=== PATIENT | female | born 1950 | race Caucasian/White ===

== ENCOUNTER → 2017-01-20 | Outpatient (CLI) | payer OTHER ==
[2017-01-20 11:46] LABS: Basophils # (A) 0.1 k/uL (0-0.2); Basophils % (A) 1 %; CH 32.4; CHCM 32.5; Eosinophils # (A) 0.2 k/uL (0-0.7); Eosinophils % (A) 2 %; HCT 45.6 % (34.0-46.0); HDW 2.47; HGB 14.6 gm/dL (11.4-16.0); Luc # (Auto) 0.15; Luc % (Auto) 2; Lymphocytes # (A) 1.8 k/uL (1.0-4.8); Lymphocytes % (A) 22 %; MCHC 31.9 g/dL (31.0-37.0); MCV 100.4 fL (80.0-100.0); Monocytes # (A) 0.4 k/uL (0-1.0); Monocytes % (A) 5 %; Neutrophils # (A) 5.3 k/uL (1.3-7.7); Neutrophils % (A) 67 %; RBC 4.55 m/uL (3.80-5.40); RDW 13.5 % (11.5-15.5); WBC 7.9 k/uL (3.8-10.6); WBC (Perox) 7.88
[2017-01-20 12:06] LABS: ALT 20 U/L (9-52); AST 17 U/L (14-36); Alkaline Phosphatase 90 U/L (38-126); Anion Gap 9 mmol/L; Blood Urea Nitrogen 10 mg/dL (7-17); Calcium 9.6 mg/dL (8.4-10.2); Carbon Dioxide 25 mmol/L (22-30); Chloride 108 mmol/L (98-107); Cholesterol 201 mg/dL (<200); Glucose 103 mg/dL (74-99); HDL Cholesterol 51 mg/dL (40-60); Non-African American GFR(MDRD) 55 (>60 ml/min/1.73 sqM); Potassium 4.4 mmol/L (3.5-5.1); Sodium 142 mmol/L (137-145); Total Bilirubin 0.7 mg/dL (0.2-1.3); Total Protein 7.4 g/dL (6.3-8.2); Triglycerides 176 mg/dL (<150)
[2017-01-20 12:52] LABS: Hepatitis C Virus IgG Index 0.03
[2017-01-20 12:57] LABS: Hepatitis C Virus IgG Ab Negative (Negative)
[2017-01-20 13:41] LABS: Hemoglobin A1C 5.5 % (4.2-6.1)
== END | disposition home or self-care (01) ==
LOC: LABWHC1 11:01
PROVIDERS: ATTEND Family Medicine
DX: E11.9 Type 2 diabetes mellitus without complications (principal); Z13.9 Encounter for screening, unspecified
CPT/HCPCS: 36415; 80053; 80061; 82043; 83036; 84443; 85025; 86803

== ENCOUNTER → 2017-02-05 | Outpatient (CLI) | payer OTHER ==
--- NOTE | 2017-02-07 10:19 | MM ---
Reason for exam: screening (asymptomatic). Last mammogram was performed 2 years and 1 month ago. History: Patient is postmenopausal and has history of endometrial cancer at age 31. Family history of breast cancer in grandmother at age 50, breast cancer in mother at age 50, and breast cancer in grandmother at age 60. Benign excisional biopsy of the right breast, 1988. Took hormonal contraceptives for 5 years beginning at age 21. Physical Findings: A clinical breast exam by your physician is recommended on an annual basis and results should be correlated with mammographic findings. MG Screening Mammo w CAD Bilateral CC and MLO view(s) were taken. Prior study comparison: December 28, 2014, bilateral MG screening mammo w CAD. February 11, 2013, bilateral digital screening mammo w/CAD. January 16, 2012, bilateral digital screening mammo w/CAD. The breast tissue is almost entirely fat. No significant changes when compared with prior studies. ASSESSMENT: Negative, BI-RAD 1 RECOMMENDATION: Routine screening mammogram of both breasts in 1 year.
== END | disposition home or self-care (01) ==
LOC: RADMAMWWP 14:27
PROVIDERS: ATTEND Family Medicine
DX: Z12.31 Encounter for screening mammogram for malignant neoplasm of breast (principal)

== ENCOUNTER 2017-05-15 06:20 | Inpatient (IN) | payer OTHER ==
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
[2017-05-15] MEDS ORDERED: ACETAMINOPHEN TAB 325 MG TAB PO PRN (10:40)
[2017-05-15] MEDS ORDERED: MAG HYDROX/AL HYDROX/SIMETH 30 ML CUP PO PRN (10:40)
[2017-05-15] MEDS ORDERED: MAGNESIUM HYDROXIDE 2,400 MG/10 ML CUP PO PRN (10:40)
[2017-05-15] MEDS ORDERED: SERTRALINE 100 MG TAB PO SCH (21:00)
[2017-05-15] MEDS ORDERED: NON-FORMULARY DRUG (Biotin [Biotin] 5 MG) PO SCH (21:00)
[2017-05-15] MEDS: ATORVASTATIN 20 MG TAB PO SCH (21:30)
[2017-05-15] MEDS: VALSARTAN 160 MG TAB PO SCH (21:30)
[2017-05-15] MEDS: ASPIRIN 81 MG CHEW PO SCH (21:30)
[2017-05-16 09:30] LABS: Basophils # (A) 0.1 k/uL (0-0.2); Basophils % (A) 1 %; CH 32.8; CHCM 33.2; Eosinophils # (A) 0.1 k/uL (0-0.7); Eosinophils % (A) 2 %; HCT 44.7 % (34.0-46.0); HDW 2.45; HGB 14.8 gm/dL (11.4-16.0); Luc # (Auto) 0.23; Luc % (Auto) 3; Lymphocytes # (A) 1.7 k/uL (1.0-4.8); Lymphocytes % (A) 21 %; MCH 32.8 pg (25.0-35.0); MCV 99.5 fL (80.0-100.0); Mean Platelet Volume 8.6; Monocytes # (A) 0.4 k/uL (0-1.0); Monocytes % (A) 5 %; Neutrophils # (A) 5.8 k/uL (1.3-7.7); Neutrophils % (A) 69 %; RDW 14.3 % (11.5-15.5); WBC 8.4 k/uL (3.8-10.6); WBC (Perox) 8.72
[2017-05-16 09:58] LABS: ALT 33 U/L (9-52); AST 28 U/L (14-36); Alkaline Phosphatase 91 U/L (38-126); Anion Gap 10 mmol/L; Blood Urea Nitrogen 15 mg/dL (7-17); Calcium 9.3 mg/dL (8.4-10.2); Carbon Dioxide 24 mmol/L (22-30); Chloride 109 mmol/L (98-107); Glucose 93 mg/dL (74-99); Non-African American GFR(MDRD) >60 (>60 ml/min/1.73 sqM); Potassium 3.7 mmol/L (3.5-5.1); Sodium 143 mmol/L (137-145); Total Bilirubin 0.6 mg/dL (0.2-1.3); Total Protein 7.1 g/dL (6.3-8.2)
--- NOTE | 2017-05-16 14:26 | CONS ---
DATE OF CONSULTATION: 05/15/17 REASON FOR CONSULTATION: Increasing depression. CONSULTATION: This is a pleasant 66 -year-old patient of Dr. Carlson whose chronic stable medical conditions include diabetes, hyperlipidemia, hypertension. The patient rather become very depressed. Appetite has gone done. Just feeling run down, tired. Not interested in things for which she presented to the ER. She also states because she is being accused of spreading bed bugs into her neighbors house. Hence, she is very depressed. Appetite is not good. REVIEW OF SYSTEMS: CONSTITUTIONAL: None. HEENT: None. RESPIRATORY: None. Cardiovascular: None. Gastrointestinal: None. Genitourinary: None. Musculoskeletal: None. Dermatology: None. Hematology: None. Lymphatics: None. Psychiatry: As above. Neurological: None. Past history of diabetes mellitus type 2, hyperlipidemia, hypertension, cervical cancer. Past surgical history: Adenoidectomy, appendectomy, cholecystectomy, tonsillectomy. Social history: The patient smokes about a pack a day. Lives by herself. Denies alcohol. FAMILY HISTORY: Reviewed, noncontributory to presentation. Home medications: 1. Diovan 320 mg q.h.s. 2. Biotin 5 mg q.h.s. 3. Aspirin 81 mg po q.h.s. 4. Zocor 40 mg q.h.s. 5. Zoloft 100 mg q.h.s. ALLERGIES: None. On examination, temperature 97.9, pulse 66, respiratory rate 16, blood pressure 130/72. Pulse ox 95% on room air. General appearance: Well built, BMI 35.6, sitting up, depressed appearing. EYES: Pupils equal. Conjunctivae normal. HEENT: Scanty hair. Oral cavity normal. External appearance of nose and ears normal. Neck: JVD not raised. Mass not palpable. Respiratory effort: Lungs decreased breath sounds. Cardiovascular: First and second sounds normal. No edema. Abdomen soft, nontender. Liver and spleen not palpable. Lymphatics: No lymph nodes palpable in the neck or axilla. Psychiatry: The patient is alert and oriented times three. Mood and affect low. Neurological: Pupils equal, cranial nerves grossly intact. Power and sensation grossly intact. INVESTIGATIONS: Urine drug screen negative. ASSESSMENT: 1. Major depression. 2. Chronic nicotine dependence, the patient is a smoker. 3. Essential hypertension. 4. Hyperlipidemia. PLAN: Home medications will be resumed. The patient given a nicotine patch. Should follow-up with her family doctor upon discharge. Thank you Dr. Lay. TOM
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
[2017-05-16] MEDS: ATORVASTATIN 20 MG TAB PO SCH (21:44)
[2017-05-16] MEDS: SERTRALINE 50 MG TAB PO SCH (21:44)
[2017-05-16] MEDS: ASPIRIN 81 MG CHEW PO SCH (21:44)
[2017-05-16] MEDS: VALSARTAN 160 MG TAB PO SCH (21:44)
[2017-05-17 06:22] LABS: Glucose,Whole Blood 98 mg/dL (75-99)
[2017-05-17] MEDS: VENLAFAXINE HCL 37.5 MG TAB PO SCH (09:39)
--- NOTE | 2017-05-17 15:52 | P.PN ---
Progress Note - Text Interval History: Patient is a 66-year-old female who was seen today and she reports that she slept well last evening. Patient states that she knows she needs to contact her landlord to find out whether she can return there to her apartment or not, patient states she is still concerned about this and is reluctant to make the call. Patient states that she is eating okay and did not report any suicidal thoughts. She states she did not go to groups today because she was tired and was napping on and off during the day. Patient had no reports of side effects from the medication. Mental Status: Appearance/Attitude: Patient is dressed in a hospital gown, makes good eye contact and is cooperative. Behavior: Patient does not display any psychomotor agitation or retardation. Speech/Language: Patient's speech is spontaneous and of normal volume and rhythm and she is coherent. Thought Process: Patient is goal-directed, there is no evidence of circumstantial tangential thought and no loose associations or flight of ideas. Thought Content: Patient denies any auditory or visual hallucinations no delusions or paranoid ideation were elicited. Patient states she still is worried about her apartment and is reluctant to make a phone call to the landlord for fear that she will begin yelling at her. Patient states that she is eating and sleeping well. Patient reports that she feels calmer here but still is concerned about the apartment situation. Suicidal/Homicidal Ideation: Patient denies any current suicidal or homicidal ideation Sensorium/Cognition: Patient is alert and oriented to person, place, and time and her memory is grossly intact. Mood/Affect: Patient's mood remains slightly depressed and her affect is appropriate. Insight/Judgement: Patient's insight and judgment are fair. Assessment: Patient reports that she continues to ruminate about her apartment and is reluctant to call the landlord to find out what is going on there because she fears that the landlord will yell at her. Patient reports that she slept well last evening and has been sleeping on and off during the day. Patient reports no side effects from the medication. Patient reports no current suicidal ideation. Patient remains depressed and states that she is feeling less anxious here on the unit. Plan: Patient will continue on Effexor 37.5 mg extended release and she will continue receiving a lower dose of Zoloft tomorrow and then it will be discontinued. Patient continues to require hospitalization to stabilize her mood. Patient was encouraged to contact her landlord to find out whether or not she can return to live there and what has gone on regarding the fumigation and treatment for bedbugs.
[2017-05-17] MEDS: ASPIRIN 81 MG CHEW PO SCH (21:41)
[2017-05-17] MEDS: SERTRALINE 50 MG TAB PO SCH (21:41)
[2017-05-17] MEDS: VALSARTAN 160 MG TAB PO SCH (21:41)
[2017-05-17] MEDS: ATORVASTATIN 20 MG TAB PO SCH (21:41)
[2017-05-18 06:28] LABS: Glucose,Whole Blood 98 mg/dL (75-99)
[2017-05-18] MEDS: VENLAFAXINE HCL 37.5 MG TAB PO SCH (09:37)
--- NOTE | 2017-05-18 10:26 | P.PN ---
Progress Note - Text Interval history: The patient is found in her room she follows me to an interview room. The patient was admitted for acute symptoms of depression. She reports a depressed mood with continued feelings of hopelessness. She had been treated for quite some time with Zoloft. Her medication was changed to Effexor XR 37.5 mg daily. She states that she had difficulty sleeping last night due to her roommate snoring and subsequently feels tired. Her questions regarding the Effexor XR work addressed. She describes her presenting circumstances. Mental status exam: The patient is an overweight female appearing her stated age. Eye contact is appropriate speech is fluent and spontaneous nonpressured. She endorses a depressed mood with hopelessness thinking. She admits that she was not doing well in caring for herself. She endorses no homicidal ideation. She does not appear hypomanic or manic. She endorses no auditory or visual hallucinations or specific delusions. She demonstrates no verbal or physical aggressiveness. Affect is dysphoric. She is oriented to person place and date. Plan: The patient will continue on the Effexor XR our plan will be to titrate it further. She is encouraged to more fully participate in the milieu. We will continue to monitor her for safety.
[2017-05-18 12:25] LABS: Glucose,Whole Blood 95 mg/dL (75-99)
[2017-05-18] MEDS: ASPIRIN 81 MG CHEW PO SCH (21:27)
[2017-05-18] MEDS: ATORVASTATIN 20 MG TAB PO SCH (21:27)
[2017-05-18] MEDS: VALSARTAN 160 MG TAB PO SCH (21:27)
[2017-05-19] MEDS: VENLAFAXINE HCL 37.5 MG TAB PO SCH (09:06)
[2017-05-19 13:46] LABS: Appearance,Urine Clear (Clear); Bilirubin,Urine Negative (Negative); Glucose,Urine (UA) Negative (Negative); Ketones,Urine Negative (Negative); Leukocyte Esterase,Urine Negative (Negative); Nitrite,Urine Negative (Negative); PH, Urine 5.5 (5.0-8.0); Protein,Urine Negative (Negative); Specific Gravity,Urine 1.012 (1.001-1.035); UA Billing (MACRO vs. MICRO) CHEM; Urobilinogen,Urine <2.0 mg/dL (<2.0)
[2017-05-19] MEDS: ASPIRIN 81 MG CHEW PO SCH (20:47)
[2017-05-19] MEDS: VALSARTAN 160 MG TAB PO SCH (20:47)
[2017-05-19] MEDS: ATORVASTATIN 20 MG TAB PO SCH (20:47)
[2017-05-19] MEDS ORDERED: VENLAFAXINE HCL 37.5 MG TAB PO SCH (21:00)
--- NOTE | 2017-05-20 09:15 | PN ---
PROGRESS NOTE DATE OF SERVICE: 05/19/2017. CHIEF COMPLAINT: The patient was admitted due to conflicts in the apartment she was living in, which caused her great distress. She had nightmares with suicidal thoughts. She has had long- term problems with depression. She has been having crying spells, loss of appetite with weight loss, poor sleep, and poor function. INTERVAL HISTORY: The patient has been doing fairly well. She had a quiet evening last night. She continues to have some depression. She slept well last night. Today she has been up and about. She attends groups sporadically. She feels that she may have some benefit from her medications though still feels that she is struggling with her mood. She has not had problems with the change in her antidepressant. She has not had change in her general health. She tolerates her psychotropic medication. MENTAL STATUS EXAM: The patient gave fair eye contact. Psychomotor activity was slowed. Speech was monotone. She answered questions with brief responses. Her thoughts were clear. She was too spontaneous, though she was somewhat interactive. Her affect was blunted. Her mood was reserved. She did appear to be significantly distressed. ASSESSMENT: Continue the current diagnosis and treatment plan. PLAN: The patient is tolerating the start of Effexor, I will increase her dose to 75 mg at bedtime. She does say that the initial doses of Effexor that she took in the morning time seemed to make her quite sleepy after she took the medication. We discussed treatment issues related to antidepressant including short and long-term issues. We will continue to focus on stabilization and discharge planning. MMJUNIOR / BRIDGETTE: [id number] /
--- NOTE | 2017-05-20 19:00 | PN ---
PROGRESS NOTE DATE OF SERVICE: 05/20/2017 CHIEF COMPLAINT: The patient was admitted due to conflicts in the apartment she was living in which caused her great distress. She had nightmares with suicide thoughts. She has had long-term problems with depression. She has been having crying spells. Loss of appetite with weight loss. Poor sleep and poor function. INTERVAL HISTORY: Patient has been doing fair. She had a quiet evening last night. She slept fairly well. Today she has been up. She comes out in the day area. She will interact a little with others. She talks about how there are some people in the unit that causes her stress so she keeps her distance. She attends some groups though not others. She still is somewhat down in her mood. She has not had problems with increase in Effexor. She has not had change in her general health. She tolerates psychotropic medications. MENTAL STATUS: Patient gave fair eye contact at best. Psychomotor activity was slowed. Speech was monotone. She answered questions with brief responses. She did make a few joking comments. Her affect was blunted. Her mood reserved. She seems somewhat distressed. ASSESSMENT: I will continue the current diagnosis and the treatment plan. Continue psychotropic medications the same. Her Effexor dose has been increased to a total of 75 mg at bedtime. We will continue to focus on stabilization and discharge planning. MMODL / IJN: [id number] /
[2017-05-20] MEDS: ASPIRIN 81 MG CHEW PO SCH (21:01)
[2017-05-20] MEDS: ATORVASTATIN 20 MG TAB PO SCH (21:01)
[2017-05-20] MEDS: VENLAFAXINE HCL ER 75 MG CAP PO SCH (21:01)
[2017-05-20] MEDS: VALSARTAN 160 MG TAB PO SCH (21:01)
--- NOTE | 2017-05-21 11:01 | P.PN ---
Progress Note - Text Interval history: The patient is found in her room she follows me to an interview room. She reports feeling tired. Staff report that she does attend meals and she did attend groups yesterday but so far not today. She has not yet received a return call from her daughter leading her know if she is able to return to the same apartment. The patient has been compliant with the Effexor the dosage has been titrated to 75 mg and it is being given at bedtime. She endorses having some intermittent hopelessness thinking. Mental status exam: The patient is an overweight female. She is dressed in her own clothing. Her hair is thinning. Eye contact is intermittent. She is cooperative pleasant but still endorses a depressed mood with some hopeless thinking. She is endorsing no acute suicidal ideation or homicidal ideation. No report or evidence of psychosis hypomania or lalita. Insight and judgment are slowly improving. She is oriented to person place and date. She demonstrates no verbal or physical aggressiveness. Affect is constricted. Plan: The patient will continue on her current medication she is encouraged to participate more fully in the milieu. Vital signs reviewed. We will continue to monitor her for safety.
[2017-05-21] MEDS: ASPIRIN 81 MG CHEW PO SCH (20:26)
[2017-05-21] MEDS: VENLAFAXINE HCL ER 75 MG CAP PO SCH (20:26)
[2017-05-21] MEDS: ATORVASTATIN 20 MG TAB PO SCH (20:27)
[2017-05-21] MEDS: VALSARTAN 160 MG TAB PO SCH (21:18)
--- NOTE | 2017-05-22 11:51 | P.PN ---
Progress Note - Text Interval history: The patient is found in her room she follows me to an interview room. She reports that her mood is slowly improving. She has selectively attended some groups. She has been compliant with medication and has no questions regarding the Effexor XR. Social work was able to make contact with the patient's landlord. The apartment has been treated for bed bugs. The patient is able to return. They asked that she remove several items from her apartment as they feel she is hoarding. On that topic the patient does not feel that she is hoarding she would admit that she does have an excessive collection of books and VHS tapes. Mental status exam: The patient is an overweight female she is dressed in her own clothing and a hospital gown. Eye contact is appropriate she is pleasant cooperative. She demonstrates a greater range of affect. She reports her hopeless thinking is resolving she feels safe in the hospital no homicidal ideation. She is endorsing no auditory or visual hallucinations. She demonstrates no tangential thinking loose associations or flight of ideas. Insight and judgment improving. She is oriented to person place and date. She demonstrates no verbal or physical aggressiveness. Plan: The patient will continue on her current medication we anticipate discharging her tomorrow. Social work will reach out to family to see if her daughter is available for a support meeting. We will continue to evaluate the patient for safety
[2017-05-22] MEDS: VALSARTAN 160 MG TAB PO SCH (20:45)
[2017-05-22] MEDS: ASPIRIN 81 MG CHEW PO SCH (20:45)
[2017-05-22] MEDS: VENLAFAXINE HCL ER 75 MG CAP PO SCH (20:45)
[2017-05-22] MEDS: ATORVASTATIN 20 MG TAB PO SCH (20:45)
[2017-05-23 07:26] VITALS: BP 116/81; PULSE 58; RESP 18; TEMP 98.1
--- NOTE | 2017-05-23 09:20 | P.DS ---
Providers Date of admission: 05/15/17 10:26 Expected date of discharge: 05/23/17 Attending physician: Kevin Lay Consults: 05/15/17 10:40 Consult Physician Routine Consulting Provider: Goldy Brewer Consult Reason/Comments: follow up H & P Do you want consulting provider notified?: Yes Primary care physician: Antoine Carlson - Discharge Diagnosis(es) (1) Major depressive disorder, recurrent severe without psychotic features Current Visit: Yes Status: Acute Priority: High Hospital Course: Brief summary of admission note: This patient is a 66-year-old female who was admitted to the mental health unit through the emergency room. She reported that she was "falling apart". She presented after it was discovered there were bedbugs in her apartment and her neighbor's apartment. She felt overwhelmed and was experiencing severe symptoms of depression with lack of energy not eating well having frequent crying spells and ruminating. She reported losing approximately 11 pounds the last month. For full details please refer to the psychiatric evaluation note. Summary of hospital course: The patient was admitted to the mental health unit voluntarily. She was seen initially by and was started on Effexor XR. The medication was titrated to 75 mg daily. The patient selectively attended groups. She was seen by internal medicine for routine history and physical exam. The patient reported progressive improvement of symptoms while here. Social work was able to make contact with the patient's landlord to discuss the housing situation. The patient demonstrated no agitated behavior. She initially felt the Effexor caused some sedation but no longer feels that the medication is causing any side effects. She reports having no suicidal ideation she demonstrates future oriented thinking in that she is looking forward to working with an outpatient counselor again. Mental status exam: The patient is an obese female appearing her stated age. She has thinning hair. She is dressed in her own clothing. Eye contact is appropriate speech is fluent spontaneous nonpressured. She reports her mood is improved she is reporting no suicidal or homicidal ideation intent or plan. She endorses no auditory or visual hallucinations or specific delusions. She demonstrates no tangential thinking loose associations or flight of ideas she does not appear hypomanic or manic. There is no overt evidence of psychosis. She demonstrates no verbal or physical aggressiveness. She remains oriented to person place and date. Affect is appropriately expresses she is able to demonstrate appropriate smiling and uses humor during the session. She remains calmly seated in the chair during the course of the interview. Impressions 1. Major depressive disorder recurrent severe without psychosis 2. History of cervical cancer, diabetes, hyperlipidemia, hypertension 3. Recent bedbug infestation at her apartment causing psychosocial dysfunction Plan: The patient will be discharged mental health unit today to return to her own home. Her landlord has been contacted she is able to return back to her apartment. She will continue on Effexor XR 75 mg daily. Social work will arrange for outpatient mental health follow-up. There is no imminent safety risk she is appropriate for transition outpatient care. She will continue to follow up with her primary care physician Dr. White as needed. She is instructed return to the hospital with any acute safety concerns. Patient Condition at Discharge: Stable Plan - Discharge Summary New Discharge Prescriptions: New Venlafaxine HCl ER [Effexor XR] 75 mg PO HS #30 cap Continue Valsartan [Diovan] 320 mg PO HS Aspirin 81 mg PO HS Simvastatin [Zocor] 40 mg PO HS Biotin 5 mg PO HS Discontinued Sertraline [Zoloft] 100 mg PO HS Discharge Medication List Aspirin 81 mg PO HS 05/15/17 [History] Biotin 5 mg PO HS 05/15/17 [History] Simvastatin [Zocor] 40 mg PO HS 05/15/17 [History] Valsartan [Diovan] 320 mg PO HS 05/15/17 [History] Venlafaxine HCl ER [Effexor XR] 75 mg PO HS #30 cap 05/23/17 [Rx] Follow up Appointment(s)/Referral(s): [facility] [Outside] - 05/24/17 4:30 pm ([place]) Wili Carlson MD [Primary Care Provider] - 1-2 days Patient Instructions/Handouts: How to Stop Smoking (DC), Depression (DC), Generalized Anxiety Disorder (ED), Suicide Prevention for Adults (DC) Activity/Diet/Wound Care/Special Instructions: Regular diet and activity as tolerated. No alcohol or street drugs. Remove all firearms from the home. Follow up with your primary care in 1-2 days. Follow up with outpatient provider as set up at time of discharge. If medication refills are needed, contact your PCP or Psychiatrist. Call crisis line at or [phone] if having thoughts of hurting yourself or others.
== END 2017-05-23 10:15 | disposition home or self-care (01) | DRG 885 ==
LOC: EC 06:20 → 3MHU 10:26
PROVIDERS: ADMIT Psychiatry & Neurology Psychiatry; ATTEND Psychiatry & Neurology Psychiatry
DX: F33.2 Major depressive disorder, recurrent severe without psychotic features (principal); E11.9 Type 2 diabetes mellitus without complications; I10 Essential (primary) hypertension; E66.9 Obesity, unspecified; E78.5 Hyperlipidemia, unspecified; F17.210 Nicotine dependence, cigarettes, uncomplicated; Z79.82 Long term (current) use of aspirin; Z79.899 Other long term (current) drug therapy; Z85.41 Personal history of malignant neoplasm of cervix uteri; Z91.5 Personal history of self-harm
CPT/HCPCS: 80053; 80306; 81003; 82075; 84443; 85025; 99284

== ENCOUNTER → 2018-02-07 | Outpatient (CLI) | payer OTHER, MEDICARE ==
[2018-02-07 10:10] LABS: Basophils # (A) 0.1 k/uL (0-0.2); Basophils % (A) 1 %; Eosinophils # (A) 0.2 k/uL (0-0.7); Eosinophils % (A) 2 %; HCT 40.7 % (34.0-46.0); HGB 13.6 gm/dL (11.4-16.0); Lymphocytes # (A) 3.3 k/uL (1.0-4.8); Lymphocytes % (A) 32 %; MCH 32.6 pg (25.0-35.0); MCHC 33.4 g/dL (31.0-37.0); MCV 97.8 fL (80.0-100.0); Mean Platelet Volume 7.6; Monocytes # (A) 0.5 k/uL (0-1.0); Monocytes % (A) 5 %; Neutrophils % (A) 58 %; Platelet Count 242 k/uL (150-450); RBC 4.16 m/uL (3.80-5.40); RDW 12.9 % (11.5-15.5); WBC 10.3 k/uL (3.8-10.6)
[2018-02-07 10:29] LABS: Albumin 4.2 g/dL (3.5-5.0); Calcium 9.8 mg/dL (8.4-10.2); Potassium 3.7 mmol/L (3.5-5.1); Total Bilirubin 0.4 mg/dL (0.2-1.3)
[2018-02-07 19:30] LABS: Hemoglobin A1C 5.9 % (4.0-6.0)
== END | disposition home or self-care (01) ==
LOC: LABWHC1 09:36
PROVIDERS: ATTEND Family Medicine
DX: E11.9 Type 2 diabetes mellitus without complications (principal)
CPT/HCPCS: 36415; 80053; 80061; 82043; 82570; 83036; 84443; 85025

== ENCOUNTER 2020-01-29 17:22 | Inpatient (IN) | payer MEDICARE, OTHER ==
[2020-01-29] MEDS ORDERED: SODIUM CHLORIDE 0.9% 1,000 ML IV STA ×4 (17:31→19:20)
[2020-01-29] MEDS ORDERED: SODIUM CHLORIDE 0.9% 500 ML 500 ML IV STA (17:31)
[2020-01-29 18:04] LABS: Basophils % (A) 0 %; Eosinophils # (A) 0.1 k/uL (0-0.7); Eosinophils % (A) 0 %; HCT 45.8 % (34.0-46.0); HGB 15.8 gm/dL (11.4-16.0); Lymphocytes # (A) 0.4 k/uL (1.0-4.8); Lymphocytes % (A) 3 %; MCH 34.6 pg (25.0-35.0); MCHC 34.5 g/dL (31.0-37.0); MCV 100.4 fL (80.0-100.0); Macrocytosis Slight; Mean Platelet Volume 10.2; Monocytes # (A) 0.7 k/uL (0-1.0); Monocytes % (A) 4 %; Neutrophils # (A) 14.9 k/uL (1.3-7.7); Neutrophils % (A) 92 %; Platelet Count 157 k/uL (150-450); RBC 4.56 m/uL (3.80-5.40); RDW 14.6 % (11.5-15.5); WBC 16.1 k/uL (3.8-10.6)
[2020-01-29 18:16] LABS: Albumin 3.7 g/dL (3.5-5.0); Calcium 9.1 mg/dL (8.4-10.2); Magnesium 2.7 mg/dL (1.6-2.3); Potassium 3.8 mmol/L (3.5-5.1); Total Bilirubin 1.6 mg/dL (0.2-1.3); Total Protein 6.9 g/dL (6.3-8.2)
--- NOTE | 2020-01-29 19:06 | ED ---
General Adult HPI - General Chief complaint: Fall Stated complaint: Hypertension Time Seen by Provider: 01/29/20 17:22 Source: patient, EMS, RN notes reviewed Mode of arrival: EMS Limitations: no limitations - History of Present Illness Initial comments: This is a 69-year-old female who is on floor by family member today is unknown how long she was actually there that the patient told paramedics she was here for 3 months. The patient's last contacted by family and the ninth of this month. Patient is not sure how she got the floor she denies any overt pain head neck or back pain she was slow to answer questions. She was found have multiple decubitus sores by paramedics. No other information available at this time though the patient does seem to respond to questioning upon arrival. She's not sure what year it is she has no she's in the hospital. She repeats that she is 79 years old. - Related Data Home Medications Medication Instructions Recorded Confirmed No Known Home Medications 01/29/20 01/29/20 Allergies Allergy/AdvReac Type Severity Reaction Status Date / Time No Known Allergies Allergy Verified 01/29/20 19:33 Review of Systems ROS Statement: Those systems with pertinent positive or pertinent negative responses have been documented in the HPI. ROS Other: All systems not noted in ROS Statement are negative. Limitations: ROS unobtainable due to patients medical condition Past Medical History Past Medical History: Cancer, Diabetes Mellitus, Hyperlipidemia, Hypertension Additional Past Medical History / Comment(s): cervical cancer. History of Any Multi-Drug Resistant Organisms: None Reported Past Surgical History: Adenoidectomy, Appendectomy, Cholecystectomy, Tonsillectomy Past Psychological History: Depression Smoking Status: Current every day smoker General Exam - General Exam Comments Initial Comments: This is a well-developed sec appearing female who is awake alert but confused patient is noted to have evidence of bedbugs with multiple bite grewal on the extremities. Limitations: no limitations General appearance: alert, in no apparent distress Head exam: Present: atraumatic, normocephalic, normal inspection Eye exam: Present: normal appearance, PERRL, EOMI. Absent: scleral icterus, conjunctival injection, periorbital swelling ENT exam: Present: mucous membranes dry Neck exam: Present: normal inspection. Absent: tenderness, meningismus, lymphadenopathy Respiratory exam: Present: normal lung sounds bilaterally. Absent: respiratory distress, wheezes, rales, rhonchi, stridor Cardiovascular Exam: Present: regular rate, normal rhythm, normal heart sounds. Absent: systolic murmur, diastolic murmur, rubs, gallop, clicks GI/Abdominal exam: Present: soft, normal bowel sounds. Absent: distended, tenderness, guarding, rebound, rigid Extremities exam: Present: full ROM, normal capillary refill. Absent: tenderness, pedal edema, joint swelling, calf tenderness Back exam: Present: normal inspection Neurological exam: Present: alert, oriented X3, CN II-XII intact Psychiatric exam: Present: normal affect, normal mood Skin exam: Present: warm, dry, normal color, other (Multiple areas of pressure sores seen on both knees the first metatarsal phalangeal joint on the left second toe on the right additionally evidence of pressure sores and skin breakd own on the chest wall and below both breasts. Exam was elevated female nurse present also a female family member present. And as above). Absent: rash Course Vital Signs 01/29/20 01/29/20 17:35 20:26 Temperature 97 F L 94.3 F L Pulse Rate 92 78 Respiratory 17 18 Rate Blood Pressure 116/76 130/68 O2 Sat by Pulse 99 100 Oximetry - Reevaluation(s) Reevaluation #1: 01/29/20 21:01 Reevaluation patient reveals that she is somewhat more responsive after IV fluids. I also did have a long discussion with the patient's granddaughter who was present. The patient's mental status at this time seems to be within baseline at this time. EKG Findings - EKG Results: EKG: interpreted by SHELDON, sinus rhythm (Sinus rhythm a sharp ear of all the rate was 92. We'll 108 QRS duration 90 QT since QTC 4:30/[address]-T wave changes) Medical Decision Making - Medical Decision Making Patient does have evidence of acute renal failure dehydration urinary tract infection she does have left acidosis likely mostly on the basis of dehydration. He does have a mildly elevated troponin again likely secondary to the renal condition. I did discuss case with Dr. Brewer. The patient will be admitted IV fluids IV antibiotics and continued reevaluation. - Lab Data Result diagrams: 01/29/20 17:50 01/29/20 17:50 Lab Results 01/29/20 01/29/20 01/29/20 Range/Units 17:50 17:50 17:50 WBC 16.1 H (3.8-10.6) k/uL RBC 4.56 (3.80-5.40) m/uL Hgb 15.8 (11.4-16.0) gm/dL Hct 45.8 (34.0-46.0) % MCV 100.4 H (80.0-100.0) fL MCH 34.6 (25.0-35.0) pg MCHC 34.5 (31.0-37.0) g/dL RDW 14.6 (11.5-15.5) % Plt Count 157 (150-450) k/uL Neutrophils % 92 % Lymphocytes % 3 % Monocytes % 4 % Eosinophils % 0 % Basophils % 0 % Neutrophils # 14.9 H (1.3-7.7) k/uL Lymphocytes # 0.4 L (1.0-4.8) k/uL Monocytes # 0.7 (0-1.0) k/uL Eosinophils # 0.1 (0-0.7) k/uL Basophils # 0.0 (0-0.2) k/uL Macrocytosis Slight Sodium 135 L (137-145) mmol/L Potassium 3.8 (3.5-5.1) mmol/L Chloride 97 L (98-107) mmol/L Carbon Dioxide 18 L (22-30) mmol/L Anion Gap 20 mmol/L BUN 105 H* (7-17) mg/dL Creatinine 3.26 H (0.52-1.04) mg/dL Est GFR (CKD-EPI)AfAm 16 (>60 ml/min/1.73 sqM) Est GFR (CKD-EPI)NonAf 14 (>60 ml/min/1.73 sqM) Glucose 236 H (74-99) mg/dL Plasma Lactic Acid Bruno (0.7-2.0) mmol/L Calcium 9.1 (8.4-10.2) mg/dL Magnesium 2.7 H (1.6-2.3) mg/dL Total Bilirubin 1.6 H (0.2-1.3) mg/dL AST 25 (14-36) U/L ALT 18 (4-34) U/L Alkaline Phosphatase 95 (38-126) U/L Ammonia <9 (<30) umol/L Creatine Kinase 93 (30-135) U/L Troponin I (0.000-0.034) ng/mL Total Protein 6.9 (6.3-8.2) g/dL Albumin 3.7 (3.5-5.0) g/dL Lipase 173 (23-300) U/L Urine Color Urine Appearance (Clear) Urine pH (5.0-8.0) Ur Specific [place] (1.001-1.035) Urine Protein (Negative) Urine Glucose (UA) (Negative) Urine Ketones (Negative) Urine Blood (Negative) Urine Nitrite (Negative) Urine Bilirubin (Negative) Urine Urobilinogen (<2.0) mg/dL Ur Leukocyte Esterase (Negative) Urine RBC (0-5) /hpf Urine WBC (0-5) /hpf Ur Squamous Epith Cells (0-4) /hpf Urine Bacteria (None) /hpf Hyaline Casts (0-2) /lpf Urine Mucus (None) /hpf 01/29/20 01/29/20 01/29/20 Range/Units 17:50 17:50 19:53 WBC (3.8-10.6) k/uL RBC (3.80-5.40) m/uL Hgb (11.4-16.0) gm/dL Hct (34.0-46.0) % MCV (80.0-100.0) fL MCH (25.0-35.0) pg MCHC (31.0-37.0) g/dL RDW (11.5-15.5) % Plt Count (150-450) k/uL Neutrophils % % Lymphocytes % % Monocytes % % Eosinophils % % Basophils % % Neutrophils # (1.3-7.7) k/uL Lymphocytes # (1.0-4.8) k/uL Monocytes # (0-1.0) k/uL Eosinophils # (0-0.7) k/uL Basophils # (0-0.2) k/uL Macrocytosis Sodium (137-145) mmol/L Potassium (3.5-5.1) mmol/L Chloride (98-107) mmol/L Carbon Dioxide (22-30) mmol/L Anion Gap mmol/L BUN (7-17) mg/dL Creatinine (0.52-1.04) mg/dL Est GFR (CKD-EPI)AfAm (>60 ml/min/1.73 sqM) Est GFR (CKD-EPI)NonAf (>60 ml/min/1.73 sqM) Glucose (74-99) mg/dL Plasma Lactic Acid Bruno 3.5 H* (0.7-2.0) mmol/L Calcium (8.4-10.2) mg/dL Magnesium (1.6-2.3) mg/dL Total Bilirubin (0.2-1.3) mg/dL AST (14-36) U/L ALT (4-34) U/L Alkaline Phosphatase (38-126) U/L Ammonia (<30) umol/L Creatine Kinase (30-135) U/L Troponin I 0.048 H* (0.000-0.034) ng/mL Total Protein (6.3-8.2) g/dL Albumin (3.5-5.0) g/dL Lipase (23-300) U/L Urine Color Dark Brown Urine Appearance Turbid H (Clear) Urine pH 5.0 (5.0-8.0) Ur Specific [place] 1.018 (1.001-1.035) Urine Protein 1+ H (Negative) Urine Glucose (UA) Negative (Negative) Urine Ketones Negative (Negative) Urine Blood Negative (Negative) Urine Nitrite Negative (Negative) Urine Bilirubin 1+ H (Negative) Urine Urobilinogen 4.0 (<2.0) mg/dL Ur Leukocyte Esterase Negative (Negative) Urine RBC 7 H (0-5) /hpf Urine WBC 5 (0-5) /hpf Ur Squamous Epith Cells 20 H (0-4) /hpf Urine Bacteria Many H (None) /hpf Hyaline Casts 266 H (0-2) /lpf Urine Mucus Moderate H (None) /hpf - Radiology Data Radiology results: report reviewed (I did review the imaging and report no acute findings.), image reviewed Critical Care Time Critical Care Time: Yes Critical Care Time: 44 minutes of critical care time which includes initial presentation with history physical labs x-rays multiple reevaluation the patient. Review of old charting discussed with patient family discuss with the main physician admission orders and documentation of the above Disposition Clinical Impression: Fall, Acute renal failure (ARF), Dehydration, Urinary tract infection, Lactic acidosis, Elevated troponin Disposition: ADMITTED IP TO THIS HOSP Condition: Fair Referrals: Wili Carlson MD [Primary Care Provider] - 1-2 days
--- NOTE | 2020-01-29 19:31 | CT ---
EXAMINATION TYPE: CT brain venkat wo con DATE OF EXAM: 01/29/2020 COMPARISON: 11/05/2012 HISTORY: Fall injury CT DLP: 1338.2 mGycm, Automated exposure control for dose reduction was used. CONTRAST: Patient injected with 0 mL of Isovue 300. CT of the brain is performed utilizing 3 mm thick sections through the posterior fossa and 3 mm thick sections through the remaining calvarium. Study is performed within 24 hours of arrival to the hospital. No abnormal hyperdensity is present to suggest an acute intracranial hemorrhage. No mass lesion is evident. There are scattered periventricular white matter hypodensities, likely on the basis of chronic white matter ischemic change. This is somewhat progressive from 2012. No acute infarcts are evident. Ventricles and sulci are appropriate for the patient age. Paranasal sinuses and mastoid air cells within the [id number] are clear. IMPRESSIONS: 1. Periventricular white matter ischemic changes. 2. No acute intracranial process. CT cervical spine. COMPARISON: None CT of the cervical spine is performed in the axial plane at 2 mm thick sections. Reconstructed image s in the coronal, and sagittal plane are reviewed on the computer. No acute fractures are evident. Vertebral body alignment is normal. Disc heights are preserved. Vertebral body heights are preserved. No spinal canal stenosis is evident. No neural foraminal stenosis is evident. IMPRESSIONS: 1. No acute osseous abnormality cervical spine.
--- NOTE | 2020-01-29 19:33 | XR ---
EXAMINATION TYPE: XR pelvis AP view DATE OF EXAM: 01/29/2020 COMPARISON: None HISTORY: Fall, pain TECHNIQUE: AP pelvis FINDINGS: Some mild degenerative changes are at sacroiliac joints. Symphysis pubis appears normal. Femoral heads articulate with the acetabulum. Mild joint space narrowing is present on the right. No acute fractures or dislocations are evident. Normal bowel gas is present. IMPRESSION: 1. No acute osseous abnormality. 2. Mild degenerative joint changes
--- NOTE | 2020-01-29 19:34 | XR ---
EXAMINATION TYPE: XR chest 1V portable DATE OF EXAM: 01/29/2020 COMPARISON: 11/05/2012 INDICATION: Fall TECHNIQUE: Single frontal view of the chest is obtained. FINDINGS: The heart size is normal. The pulmonary vasculature is normal. The lungs are clear. No pneumothorax is evident. No displaced fractures are identified. IMPRESSION: 1. No acute pulmonary process.
[2020-01-29 20:07] LABS: Appearance,Urine Turbid (Clear); Bacteria,Urine Many /hpf; Bilirubin,Urine 1+ (Negative); Blood,Urine Negative (Negative); Color,Urine Dark Brown; Glucose,Urine (UA) Negative (Negative); Hyaline Casts,Urine 266 /lpf (0-2); Ketones,Urine Negative (Negative); Leukocyte Esterase,Urine Negative (Negative); Mucus,Urine Moderate /hpf; Nitrite,Urine Negative (Negative); Protein,Urine 1+ (Negative); RBC,Urine 7 /hpf (0-5); Specific Gravity,Urine 1.018 (1.001-1.035); Squamous Epithelial Cell,Urine 20 /hpf (0-4); WBC,Urine 5 /hpf (0-5)
[2020-01-29] MEDS ORDERED: cefTRIAXone IN SWFI 1,000 MG/10 ML SYRINGE IVP STA (20:17)
[2020-01-29] MEDS ORDERED: ONDANSETRON 4 MG/2 ML VIAL IVP PRN (21:05)
[2020-01-29] MEDS ORDERED: ACETAMINOPHEN TAB 325 MG TAB PO PRN (21:05)
[2020-01-29] MEDS ORDERED: NALOXONE 0.4 MG/ML 1 ML VIAL IV PRN (21:05)
[2020-01-30 06:57] LABS: Basophils % (A) 0 %; Eosinophils % (A) 0 %; HCT 41.5 % (34.0-46.0); HGB 14.4 gm/dL (11.4-16.0); Lymphocytes # (A) 0.4 k/uL (1.0-4.8); Lymphocytes % (A) 3 %; MCH 34.4 pg (25.0-35.0); MCHC 34.7 g/dL (31.0-37.0); MCV 99.2 fL (80.0-100.0); Mean Platelet Volume 9.9; Monocytes # (A) 0.8 k/uL (0-1.0); Monocytes % (A) 5 %; Neutrophils # (A) 14.4 k/uL (1.3-7.7); Neutrophils % (A) 91 %; Platelet Count 145 k/uL (150-450); RBC 4.18 m/uL (3.80-5.40); RDW 14.1 % (11.5-15.5); WBC 15.9 k/uL (3.8-10.6)
[2020-01-30 07:08] LABS: Albumin 2.9 g/dL (3.5-5.0); Calcium 8.1 mg/dL (8.4-10.2); Potassium 3.6 mmol/L (3.5-5.1); Total Bilirubin 1.1 mg/dL (0.2-1.3); Total Protein 5.9 g/dL (6.3-8.2)
[2020-01-30] MEDS ORDERED: PANTOPRAZOLE 40 MG/10 ML VIAL IV SCH (09:00)
[2020-01-30] MEDS: LACTATED RINGERS 1,000 ML IV SCH ×2 (12:12→20:16)
[2020-01-30 12:18] LABS: Glucose,Whole Blood 235 mg/dL (75-99)
[2020-01-30] MEDS: INSULIN ASPART (NovoLOG) 100 UNIT/ML VIAL SQ SCH ×2 (12:20→16:39)
--- NOTE | 2020-01-30 12:46 | P.NPCON ---
History of Present Illness - Reason for Consult acute renal failure - History of Present Illness Reason for consultation: Acute kidney injury History of present illness: Patient is a 69-year-old female seen in renal consultation for acute kidney injury. Patient's creatinine January 2020 8T was 0.94 and was elevated at 3.26 this admission. It is up to 3.52 today. Patient was brought to the hospital after she was found to be unresponsive by family. Patient is unsure as to how long she was down for. She was found to have pressure sores. CK level was normal. She denies any problems with urination. No hematuria or dysuria. No vomiting or diarrhea. Oral intake has been fair. No evidence of hypotension. Blood pressures controlled. She denies regular use of nonsteroidals. No history of diabetes per patient but it is documented in the records. Denies family history of renal disease. She is currently maintained on lactated Ringer's at 1 25 mL an hour. She did receive 2 L of normal saline bolus on admission. Chest x-ray did not digestible fluid overload. She has a Clement catheter. Urine output 50 mL overnight. Vital signs are stable. General: The patient appeared well nourished and normally developed. HEENT: Head exam is unremarkable. Neck is without jugular venous distension. LUNGS: Lungs are clear to auscultation and percussion. Breath sounds decreased. HEART: Rate and Rhythm are regular. ABDOMEN: Nontender, nondistended. EXTREMITITES: No clubbing, cyanosis, or edema. Past Medical History Past Medical History: Cancer, Diabetes Mellitus, Hyperlipidemia, Hypertension Additional Past Medical History / Comment(s): cervical cancer. History of Any Multi-Drug Resistant Organisms: None Reported Past Surgical History: Adenoidectomy, Appendectomy, Cholecystectomy, Tonsillectomy Past Psychological History: Depression Smoking Status: Never smoker Past Alcohol Use History: None Reported Past Drug Use History: None Reported Medications and Allergies Home Medications Medication Instructions Recorded Confirmed Type No Known Home Medications 01/29/20 01/29/20 History Allergies Allergy/AdvReac Type Severity Reaction Status Date / Time No Known Allergies Allergy Verified 01/29/20 19:33 Physical Exam Vitals: Vital Signs Temp Pulse Pulse Resp BP BP Pulse Ox 01/30/20 08:00 98.2 F 90 18 117/80 99 01/30/20 03:12 97.6 F 87 18 112/87 96 01/30/20 00:12 94.8 F L 87 18 127/87 95 01/29/20 22:35 93.7 F L 79 18 124/59 01/29/20 21:22 94 F L 01/29/20 20:26 94.3 F L 78 18 130/68 100 01/29/20 17:35 97 F L 92 17 116/76 99 Intake and Output 01/29/20 01/30/20 01/30/20 22:59 06:59 14:59 Intake Total 2500 50 Output Total 20 50 15 Balance -20 2450 35 Intake: Intake, IV Titration 2000 Amount Sodium Chloride 0.9% 1, 1000 000 ml @ 130 mls/hr IV . Q7H42M STA Rx#:[id number] Sodium Chloride 0.9% 1, 1000 000 ml @ 999 mls/hr IV . Q1H1M STA Rx#:[id number] Oral 500 50 Output: Urine 20 50 15 Uretheral (Clement) 20 Other: Voiding Method Indwelling Catheter Indwelling Catheter Weight 63.503 kg 75 kg Results - Lab Results Most recent lab results Calcium 8.1 mg/dL (8.4-10.2) L 01/30/20 05:56 Magnesium 2.7 mg/dL (1.6-2.3) H 01/29/20 17:50 01/30/20 05:56 01/30/20 05:56 Assessment and Plan Plan: Assessment: 1. Acute kidney injury secondary to ATN secondary to severe intravascular volume depletion. No evidence of rhabdomyolysis. Creatinine up to 3.52 today. Oliguric. 2. Metabolic acidosis secondary to acute kidney injury and lactic acidosis. 3. Diabetes mellitus. Plan: Maintain lactated Ringer's at 125 mL an hour. Check renal ultrasound. Avoid nephrotoxins. Adoral sodium bicarbonate. I did discuss with the patient potential need for renal replacement therapy this admission if no improvement in renal function and urine output in the next 24-48 hours. She is in agreement to proceed with dialysis if needed. Thank you for the consultation. I will continue to follow the patient with you during her hospital stay.
--- NOTE | 2020-01-30 13:40 | P.CN ---
Psychiatric Consult - . Consult date: 01/30/20 Consult:: 01/30/20 13:26 IDENTIFYING DATA: This patient is a 69-year-old female who currently lives alone in apartment is and has 2 kids and 5 grandchildren. HISTORY OF PRESENT ILLNESS: The patient presented to the hospital after being found on the floor by family members and was confused and was unsure of how long she was on the floor for. She had multiple decubitus ulcers on her body and stated to the ambulance that she was on the floor for "3 months" according to ER report. Patient was asked to be seen for severe depression. Patient was seen at the bedside and appeared to be lethargic and somewhat confused, slow to respond to questions however did follow most commands. She claims that she feels "terrible" and states that she's not sure why. She mentioned that she was on the floor and "couldn't get up". She was a poor historian and was confused during the interview at times what the timeline of events. She did not know why she was feeling lethargic and was on the floor. She did state that she had some mild abdominal pain. She claims that her mood was depressed and states that "nobody comes to see me unless they need money". She states that her sleep is poor in the hospital and states that people keep on waking her up "because they think I'm dying". At this time patient denies any suicidal or homical ideations, intent or plan. Patient denies any auditory, visual hallucinations and denies any paranoia or delusions. Patients admits to using cigarettes in the past however states that she quit. She denies any other recreational drug use. PAST PSYCHIATRIC HISTORY: Patient has a a history of depression. Patient was previously on Effexor 75 mg daily. She was last hospitalized on the mental health floor in 04/2017. Patient denies any psychiatric outpatient follow-up. She states that she had 1 suicide attempt when she tried to run in front of a car which was several years ago. PAST MEDICAL HISTORY: Cancer, diabetes, hyperlipidemia, hypertension. ALLERGIES: as per EMR. CHEMICAL DEPENDENCY HISTORY: as per HPI. FAMILY PSYCHIATRIC/SUBSTANCE USE HISTORY: denies SOCIAL HISTORY: Patient was born and raised in [place] and completed high school however did not attend college. She states that she worked at the [employer] for several years. She has 2 kids and 5 grandchildren and currently lives alone in an apartment and is . MENTAL STATUS EXAM: General Appearance: Patient appears to be stated age is lethargic, pleasant, and attempts to be cooperative. Patient appears to have poor hygiene and grooming wearing hospital gown with fair eye contact. Behavior: Patient is calmly lying in bed without any agitated behavior. Slow to respond. Speech: Patient's speech is fluent and nonpressured. Soft tone. Mood/Affect: Patient reports their mood is "depressed", affect is congruent and constricted. Suicidality/Homicidality: Patient denies having any suicidal or homicidal ideation intent or plan. Perceptions: Patient denies any visual hallucinations and denies any auditory hallucinations Though content/process: Poor historian, logical and concrete. Memory and concentration: AOX1, believes that she is in the emergency room and only knows that it's the year "2019". She has poor memory recall. Cannot spell "WORLD" backwards Judgment and insight: Limited IMPRESSIONS: Delirium likely secondary to toxic/metabolic etiology Major depressive disorder PLAN: -At this time patient DOES NOT meet criteria for inpatient psychiatric admission however will continue to follow along once delirium clears and patient's underlying medical condition improves to see if patient should be transferred to the mental health unit versus other options. -Delirium precautions recommended with patient including - avoiding use of narcotics and GEOGRAPHIC INFORMATION SYSTEMS ANALYST sedatives, limit anticholinergic medications when possible, frequent re-orientation, minimize use of restraints, open window shades during the day and close them at night -Would recommend the following medication changes/additions: We'll start patient back on Effexor XR 37.5 mg daily for mood. We'll also start melatonin 3 mg daily at bedtime for sleep. -Will continue to follow along as needed as this patient gradually improves her medical condition. Primary team to consider OT/PT evaluation to deem if patient is able to care for herself at home or needs higher level of care upon disposition. -Please contact with any questions.
--- NOTE | 2020-01-30 15:31 | US ---
EXAMINATION TYPE: US kidneys/renal and bladder DATE OF EXAM: 01/30/2020 COMPARISON: NONE CLINICAL HISTORY: [email or web address]. SONYA Patient exam limitations due to unable to roll and body habitus. EXAM MEASUREMENTS: Right Kidney: 7.7 x 4.3 x 3.6 cm Left Kidney: Unable to visual due to patient ready to roll. Right Kidney: No hydronephrosis or masses seen Left Kidney: Not visualized due to patient unable to roll. Bladder: Patient has cather in. Bilateral Jets seen: No There is no evidence for hydronephrosis at this point in time. No nephrolithiasis is seen. IMPRESSION: Limited evaluation left kidney. Right kidney appears diminutive in size.
[2020-01-30] MEDS: VENLAFAXINE HCL ER 37.5 MG CAP PO SCH (16:15)
[2020-01-30 16:30] LABS: Glucose,Whole Blood 216 mg/dL (75-99)
--- NOTE | 2020-01-30 18:48 | P.HPIM ---
History of Present Illness H&P Date: 01/30/20 Chief Complaint: Found on the floor History of presenting complaint: This is a 69-year-old patient who presented to the ER. Apparently a family member called the EMS. When EMS arrived patient is on the floor. She told her she been there for a few months. She had uterine facies all over and the place was totally uncontrolled. He wonders animal feces. Patient bruising in different possible body. Tired rundown rather confused. Unable to give any much of a history. Patient apparently doesn't take any medications. I did have the nurse call patient's family doctor and the pharmacy but no medications were filled for the last 2 years at least. Patient was here in 2017 and the psychiatry unit for severe depression. At that time she had a diagnosis of diabetes hypertension hyperlipidemia. Patient has a stage I buttock decub. Patient's hardly been eating here. Patient was hypothermic on presentation. Did get a hugger. Divya answering questions. Following acute renal failure started on IV fluids. Denies any shortness of breath or cough. Patient is kn own to being a smoker otherwise. Per the EMS report bedbugs are noted. Admitting review of systems cannot really be done as patient is not forthcoming with answers. Rather withdrawn. Past medical history to include: Diabetes, hypertension, hyperlipidemia, severe depression Social history: Lives alone. Smoker. Denies alcohol Family history: Patient cannot tell Physical examination: VITAL SIGNS: 94.3, 78, 18, 130/68, 100% on room air GENERAL: BMI 26.7, laying in bed rather withdrawn. Diffuse bruising on the skin and possible bedbugs grewal EYES: Pupils equal. Conjunctiva palel. HEENT: External appearance of nose and ears normal, oral cavity dry. NECK: JVD not raised; masses not palpable. HEART: First and second heart sounds are normal; no edema. LUNGS: Respiratory rate normal; decreased breath sounds. ABDOMEN: Soft, nontender, liver spleen not palpable, no masses palpable. PSYCH: [Patient is very withdrawn, only answering questions occasionally, tells me I am not the doctor.. NEUROLOGICAL: Cranial nerves grossly intact; no facial asymmetry, power and sensation grossly intact. DERMATOLOGICAL: Diffuse bruising. Also grewal that could be compatible with bedbugs LYMPHATICS: No lymph nodes palpable in the axilla and neck INVESTIGATIONS, reviewed in the clinical context: White count 16.1 hemoglobin 15.8 platelets 157 potassium 3.8 105 creatinine 3.26 lactic acid 3.5 total bilirubin 1.6 Troponin I 0.048 UA showing bacteria, hyaline cast mucus COVID-19 PCR-not detected Chest x-ray film personally reviewed by me-lung corona clear EKG tracing personally reviewed by me shows-sinus rhythm Pelvic head, cervical spine studies-negative for fracture Assessment: -Acute kidney injury possibly combination of prerenal and ATN from hypotension, POA -Acute metabolic encephalopathy multifactorial, POA -Hypothermia-multifactorial, POA -Major depression, recurrent, cannot rule out a psychosis component -Medical debility -Possible UTI with cystitis -Metabolic acidosis from renal failure -Lactic acidosis likely type II -Bed bugs Plan: Patient was in a bear hugger overnight. Blood and IV fluids. Follow electrolytes closely. Fall precautions. Encourage oral intake. Consultation made both to nephrology and psychiatry. We'll call housekeeping in terms of bedbugs. Social work involved. sodium bicarbonate by mouth. Lovenox for DVT prophylaxis. Past Medical History Past Medical History: Cancer, Diabetes Mellitus, Hyperlipidemia, Hypertension Additional Past Medical History / Comment(s): cervical cancer. History of Any Multi-Drug Resistant Organisms: None Reported Past Surgical History: Adenoidectomy, Appendectomy, Cholecystectomy, Tonsi llectomy Past Psychological History: Depression Smoking Status: Never smoker Past Alcohol Use History: None Reported Past Drug Use History: None Reported Medications and Allergies Home Medications Medication Instructions Recorded Confirmed Type No Known Home Medications 01/29/20 01/29/20 History Allergies Allergy/AdvReac Type Severity Reaction Status Date / Time No Known Allergies Allergy Verified 01/29/20 19:33 Physical Exam Vitals: Vital Signs Temp Pulse Pulse Resp BP BP Pulse Ox 01/30/20 03:12 97.6 F 87 18 112/87 96 01/30/20 00:12 94.8 F L 87 18 127/87 95 01/29/20 22:35 93.7 F L 79 18 124/59 01/29/20 21:22 94 F L 01/29/20 20:26 94.3 F L 78 18 130/68 100 01/29/20 17:35 97 F L 92 17 116/76 99 Intake and Output 01/29/20 01/30/20 01/30/20 22:59 06:59 14:59 Intake Total 2500 50 Output Total 20 50 15 Balance -20 7650 35 Intake: Intake, IV Titration 2000 Amount Sodium Chloride 0.9% 1, 1000 000 ml @ 130 mls/hr IV . Q7H42M STA Rx#:[id number] Sodium Chloride 0.9% 1, 1000 000 ml @ 999 mls/hr IV . Q1H1M STA Rx#:[id number] Oral 500 50 Output: Urine 20 50 15 Uretheral (Clement) 20 Other: Voiding Method Indwelling Catheter Weight 63.503 kg 75 kg Results CBC & Chem 7: 01/30/20 05:56 01/30/20 05:56 Labs: Abnormal Lab Results - Last 24 Hours (Table) 01/29/20 01/29/20 01/29/20 Range/Units 17:50 17:50 17:50 WBC 16.1 H (3.8-10.6) k/uL MCV 100.4 H (80.0-100.0) fL Plt Count (150-450) k/uL Neutrophils # 14.9 H (1.3-7.7) k/uL Lymphocytes # 0.4 L (1.0-4.8) k/uL Sodium 135 L (137-145) mmol/L Chloride 97 L (98-107) mmol/L Carbon Dioxide 18 L (22-30) mmol/L BUN 105 H* (7-17) mg/dL Creatinine 3.26 H (0.52-1.04) mg/dL Glucose 236 H (74-99) mg/dL Plasma Lactic Acid Bruno 3.5 H* (0.7-2.0) mmol/L Calcium (8.4-10.2) mg/dL Magnesium 2.7 H (1.6-2.3) mg/dL Total Bilirubin 1.6 H (0.2-1.3) mg/dL Troponin I (0.000-0.034) ng/mL Total Protein (6.3-8.2) g/dL Albumin (3.5-5.0) g/dL Urine Appearance (Clear) Urine Protein (Negative) Urine Bilirubin (Negative) Urine RBC (0-5) /hpf Ur Squamous Epith Cells (0-4) /hpf Urine Bacteria (None) /hpf Hyaline Casts (0-2) /lpf Urine Mucus (None) /hpf 01/29/20 01/29/20 01/29/20 Range/Units 17:50 19:53 21:25 WBC (3.8-10.6) k/uL MCV (80.0-100.0) fL Plt Count (150-450) k/uL Neutrophils # (1.3-7.7) k/uL Lymphocytes # (1.0-4.8) k/uL Sodium (137-145) mmol/L Chloride (98-107) mmol/L Carbon Dioxide (22-30) mmol/L BUN (7-17) mg/dL Creatinine (0.52-1.04) mg/dL Glucose (74-99) mg/dL Plasma Lactic Acid Bruno 2.7 H* (0.7-2.0) mmol/L Calcium (8.4-10.2) mg/dL Magnesium (1.6-2.3) mg/dL Total Bilirubin (0.2-1.3) mg/dL Troponin I 0.048 H* (0.000-0.034) ng/mL Total Protein (6.3-8.2) g/dL Albumin (3.5-5.0) g/dL Urine Appearance Turbid H (Clear) Urine Protein 1+ H (Negative) Urine Bilirubin 1+ H (Negative) Urine RBC 7 H (0-5) /hpf Ur Squamous Epith Cells 20 H (0-4) /hpf Urine Bacteria Many H (None) /hpf Hyaline Casts 266 H (0-2) /lpf Urine Mucus Moderate H (None) /hpf 01/30/20 01/30/20 01/30/20 Range/Units 01:07 05:56 05:56 WBC 15.9 H (3.8-10.6) k/uL MCV (80.0-100.0) fL Plt Count 145 L (150-450) k/uL Neutrophils # 14.4 H (1.3-7.7) k/uL Lymphocytes # 0.4 L (1.0-4.8) k/uL Sodium 135 L (137-145) mmol/L Chloride (98-107) mmol/L Carbon Dioxide 17 L (22-30) mmol/L BUN 103 H* (7-17) mg/dL Creatinine 3.52 H (0.52-1.04) mg/dL Glucose 189 H (74-99) mg/dL Plasma Lactic Acid Bruno 2.2 H* (0.7-2.0) mmol/L Calcium 8.1 L (8.4-10.2) mg/dL Magnesium (1.6-2.3) mg/dL Total Bilirubin (0.2-1.3) mg/dL Troponin I (0.000-0.034) ng/mL Total Protein 5.9 L (6.3-8.2) g/dL Albumin 2.9 L (3.5-5.0) g/dL Urine Appearance (Clear) Urine Protein (Negative) Urine Bilirubin (Negative) Urine RBC (0-5) /hpf Ur Squamous Epith Cells (0-4) /hpf Urine Bacteria (None) /hpf Hyaline Casts (0-2) /lpf Urine Mucus (None) /hpf 01/30/20 Range/Units 05:56 WBC (3.8-10.6) k/uL MCV (80.0-100.0) fL Plt Count (150-450) k/uL Neutrophils # (1.3-7.7) k/uL Lymphocytes # (1.0-4.8) k/uL Sodium (137-145) mmol/L Chloride (98-107) mmol/L Carbon Dioxide (22-30) mmol/L BUN (7-17) mg/dL Creatinine (0.52-1.04) mg/dL Glucose (74-99) mg/dL Plasma Lactic Acid Bruno 2.1 H* (0.7-2.0) mmol/L Calcium (8.4-10.2) mg/dL Magnesium (1.6-2.3) mg/dL Total Bilirubin (0.2-1.3) mg/dL Troponin I (0.000-0.034) ng/mL Total Protein (6.3-8.2) g/dL Albumin (3.5-5.0) g/dL Urine Appearance (Clear) Urine Protein (Negative) Urine Bilirubin (Negative) Urine RBC (0-5) /hpf Ur Squamous Epith Cells (0-4) /hpf Urine Bacteria (None) /hpf Hyaline Casts (0-2) /lpf Urine Mucus (None) /hpf Microbiology - Last 24 Hours (Table) 01/29/20 20:08 Urine Culture - Preliminary Urine,Voided
[2020-01-30] MEDS: ENOXAPARIN 40 MG/0.4 ML SYRINGE SQ SCH (20:15)
[2020-01-30] MEDS: MELATONIN 3 MG TABLET PO SCH (20:16)
[2020-01-30] MEDS ORDERED: cefTRIAXone IN SWFI 1,000 MG/10 ML SYRINGE IVP SCH (21:00)
[2020-01-31 06:29] LABS: Glucose,Whole Blood 103 mg/dL (75-99)
[2020-01-31] MEDS: INSULIN ASPART (NovoLOG) 100 UNIT/ML VIAL SQ SCH ×3 (06:30→16:43)
[2020-01-31 07:56] LABS: Calcium 7.9 mg/dL (8.4-10.2); Magnesium 2.1 mg/dL (1.6-2.3); Potassium 3.4 mmol/L (3.5-5.1)
[2020-01-31] MEDS: ENOXAPARIN 40 MG/0.4 ML SYRINGE SQ SCH (09:13)
[2020-01-31] MEDS: VENLAFAXINE HCL ER 37.5 MG CAP PO SCH (09:13)
[2020-01-31 11:38] LABS: Glucose,Whole Blood 115 mg/dL (75-99)
[2020-01-31] MEDS: LACTATED RINGERS 1,000 ML IV SCH ×2 (12:03→12:42)
[2020-01-31] MEDS: DEXTROSE 5%-0.45% NACL 1,000 ML IV SCH (15:47)
[2020-01-31 16:43] LABS: Glucose,Whole Blood 153 mg/dL (75-99)
--- NOTE | 2020-01-31 16:46 | P.PN ---
Progress Note - Text Progress Note Date: 01/31/20 Chief Complaint: Found on the floor History of presenting complaint: This is a 69-year-old patient who presented to the ER. Apparently a family member called the EMS. When EMS arrived patient is on the floor. She told her she been there for a few months. She had uterine facies all over and the place was totally uncontrolled. He wonders animal feces. Patient bruising in different possible body. Tired rundown rather confused. Unable to give any much of a history. Patient apparently doesn't take any medications. I did have the nurse call patient's family doctor and the pharmacy but no medications were filled for the last 2 years at least. Patient was here in 2017 and the psychiatry unit for severe depression. At that time she had a diagnosis of diabetes hypertension hyperlipidemia. Patient has a stage I buttock decub. Patient's hardly been eating here. Patient was hypothermic on presentation. Did get a hugger. Divya answering questions. Following acute renal failure started on IV fluids. Denies any shortness of breath or cough. Patient is known to being a smoker otherwise. Per the EMS report bedbugs are noted. Admitted with-acute kidney injury injury from prerenal/ATN from hypertension, acute metabolic is some opacity, hypothermia, depression metabolic acidosis. Today-laying in bed. Awake. Hardly eating. Getting IV fluids. Started on Effexor by psychiatry. Nurse informed me that did not find any bedbugs. Admitting review of systems cannot really be done as patient is hardly talking. Active Medications Acetaminophen (Tylenol Tab) 650 mg PO Q6HR PRN PRN Reason: Mild Pain or Fever > 100.5 Enoxaparin Sodium (Lovenox) 40 mg SQ DAILY [facility] Last Admin: 01/31/20 09:13 Dose: 40 mg Documented by: Ceftriaxone Sodium 1 gm/ (Sodium Chloride) 50 mls @ 100 mls/hr IVPB Q24H [facility] Last Admin: 01/30/20 20:15 Dose: 100 mls/hr Documented by: Dextrose/Sodium Chloride (Dextrose 5%-1/2ns Iv Soln) 1,000 mls @ 125 mls/hr IV .Q8H [facility] Last Admin: 01/31/20 15:47 Dose: 125 mls/hr Documented by: Insulin Aspart (Novolog) 0 unit SQ AC-TID [facility]; Protocol Last Admin: 01/31/20 12:03 Dose: Not Given Documented by: Melatonin (Melatonin) 3 mg PO HS [facility] Last Admin: 01/30/20 20:16 Dose: 3 mg Documented by: Naloxone HCl (Narcan) 0.2 mg IV Q2M PRN PRN Reason: Opioid Reversal Ondansetron HCl (Zofran) 4 mg IVP Q8HR PRN PRN Reason: Nausea And Vomiting Venlafaxine HCl (Effexor Xr) 37.5 mg PO DAILY [facility] Last Admin: 01/31/20 09:13 Dose: 37.5 mg Documented by: Physical examination: VITAL SIGNS: 97.4, 67, 16, 129/67, 99% on room air GENERAL: BMI 26.7, laying in bed rather withdrawn. EYES: Pupils equal. Conjunctiva pale. HEENT: External appearance of nose and ears normal, oral cavity dry. NECK: JVD not raised; masses not palpable. HEART: First and second heart sounds are normal; no edema. LUNGS: Respiratory rate normal; decreased breath sounds. ABDOMEN: Soft, nontender, liver spleen not palpable, no masses palpable. PSYCH: Answering occasional question only water to other depressed appearing DERMATOLOGICAL: Diffuse bruising. INVESTIGATIONS, reviewed in the clinical context: Potassium 3.4 100 103.03 bicarb 16 Previous testing White count 16.1 hemoglobin 15.8 platelets 157 potassium 3.8 105 creatinine 3.26 lactic acid 3.5 total bilirubin 1.6 Troponin I 0.048 UA showing bacteria, hyaline cast mucus COVID-19 PCR-not detected Chest x-ray film personally reviewed by me-lung corona clear EKG tracing personally reviewed by me shows-sinus rhythm Pelvic head, cervical spine studies-negative for fracture Assessment: -Acute kidney injury possibly combination of prerenal and ATN from hypotension, POA-slow to respond -Acute metabolic encephalopathy multifactorial, POA-slow to respond -Hypothermia-multifactorial, POA, better -Major depression, recurrent, cannot rule out a psychosis component -Medical debility -Possible UTI with cystitis -Metabolic acidosis from renal failure -Lactic acidosis likely type II -No bedbugs found to the nursing. Plan: Discussed with nurse to encourage oral intake. Change IV fluids D5.45. Follow lites. Prognosis guarded.
--- NOTE | 2020-01-31 16:58 | PN ---
PROGRESS NOTE The patient is seen for followup for acute kidney injury. Her creatinine was 3.26 on admission, went up to 3.52 yesterday. She was found unresponsive by family. The patient has had fluid boluses and is currently maintained on IV fluids at 125 mL an hour. This morning creatinine is down to 3.0. The patient does not communicate much. She has an indwelling Clement catheter with 24 hour urine output not accurately charted. However, this morning, patient had 275 mL for 3 hours. EXAMINATION: Today patient is comfortable. She is awake. She does not answer questions. Blood pressure was 129/67, heart rate 67 per minute. She is afebrile. Examination of the heart S1, S2. Examination of the lungs, decreased breath sounds at bases. Abdomen is soft, nontender. Examination of lower extremities shows no significant edema. VISE HAND exam cannot be assessed. Patient is not communicating much. LABS: Show sodium 136, potassium 3.4, chloride 107, CO2 is 16, BUN 101, serum creatinine 3.03. Lactic acid 7.9. ASSESSMENT: 1. Acute kidney injury, most likely associated with hypovolemia. No significant hypotension noted. Currently maintained on IV fluids with improvement in renal function. UA does not show any significant hematuria. The patient did have 1+ proteinuria. Ultrasound of the kidneys does not show any significant hydronephrosis. Continue IV fluids and repeat labs in a.m. No nephrotoxic agents on board. 2. Diabetes maintained on insulin. 3. Metabolic acidosis associated with acute kidney injury, lactic acidosis, currently improved. PLAN: Continue IV fluids, repeat labs in a.m. MMODL / IJN: [id number] /
[2020-01-31] MEDS: MELATONIN 3 MG TABLET PO SCH (20:11)
[2020-02-01] MEDS: DEXTROSE 5%-0.45% NACL 1,000 ML IV SCH ×4 (00:19→17:02)
[2020-02-01 06:51] LABS: Glucose,Whole Blood 170 mg/dL (75-99)
[2020-02-01] MEDS: INSULIN ASPART (NovoLOG) 100 UNIT/ML VIAL SQ SCH ×3 (06:57→17:01)
[2020-02-01 07:03] LABS: Calcium 7.8 mg/dL (8.4-10.2)
[2020-02-01] MEDS ORDERED: Potassium Replacement Protocol 1 EACH MISC MISCELLANE PRN (07:38)
[2020-02-01] MEDS: POTASSIUM CHLORIDE ER 20 MEQ TAB.ER PO SCH ×2 (08:24→09:43)
[2020-02-01] MEDS: ENOXAPARIN 40 MG/0.4 ML SYRINGE SQ SCH (08:24)
[2020-02-01] MEDS: VENLAFAXINE HCL ER 37.5 MG CAP PO SCH (08:24)
[2020-02-01 11:58] LABS: Glucose,Whole Blood 170 mg/dL (75-99)
[2020-02-01] MEDS: POTASSIUM CHLORIDE ER 20 MEQ TAB.ER PO STA ×2 (13:48→13:52)
--- NOTE | 2020-02-01 15:41 | PN ---
PROGRESS NOTE Patient is seen for followup for acute kidney injury. Renal function has improved significantly. Creatinine is down to 1.85 from 3.5. She is maintained on IV fluids. Overall, patient's mentation is also improved. PHYSICAL EXAMINATION: On examination today, blood pressure was 118/56, heart rate 52 per minute, she is afebrile. Examination shows no evidence of edema lower extremities. Abdomen is soft, nontender. The patient answers questions. The breath sounds are decreased bilateral bases. LABS: Show sodium 134, potassium 3.0, chloride 106, CO2 17, BUN 78, creatinine 1.85. ASSESSMENT: 1. Acute kidney injury, appears to be prerenal, currently improving. Patient is maintained on IV fluids. 2. Type 2 diabetes, maintained on insulin. 3. Metabolic acidosis with acute kidney injury and lactic acidosis, currently improved. 4. Hypokalemia, status post replacement. PLAN: Continue IV fluids. Encourage increased oral intake. Repeat labs in a.m. MMODL / IJN: [id number] /
--- NOTE | 2020-02-01 15:48 | P.PN ---
Progress Note - Text Progress Note Date: 02/01/20 Chief Complaint: Found on the floor History of presenting complaint: This is a 69-year-old patient who presented to the ER. Apparently a family member called the EMS. When EMS arrived patient is on the floor. She told her she been there for a few months. She had uterine facies all over and the place was totally uncontrolled. He wonders animal feces. Patient bruising in different possible body. Tired rundown rather confused. Unable to give any much of a history. Patient apparently doesn't take any medications. I did have the nurse call patient's family doctor and the pharmacy but no medications were filled for the last 2 years at least. Patient was here in 2017 and the psychiatry unit for severe depression. At that time she had a diagnosis of diabetes hypertension hyperlipidemia. Patient has a stage I buttock decub. Patient's hardly been eating here. Patient was hypothermic on presentation. Did get a hugger. Divya answering questions. Following acute renal failure started on IV fluids. Denies any shortness of breath or cough. Patient is known to being a smoker otherwise. Per the EMS report bedbugs are noted. Admitted with-acute kidney injury injury from prerenal/ATN from hypertension, acute metabolic is some opacity, hypothermia, severe depression metabolic acidosis. Patient started on bicarbonate, IV fluids, IV ceftriaxone-for UTI. Today-laying in bed. Has been continued to refuse food. Getting IV fluids. Talks very sparingly. Often will not answer questions. Very withdrawn Admitting review of systems cannot really be done as patient is very withdrawn Active Medications Acetaminophen (Tylenol Tab) 650 mg PO Q6HR PRN PRN Reason: Mild Pain or Fever > 100.5 Enoxaparin Sodium (Lovenox) 30 mg SQ DAILY [facility] Ceftriaxone Sodium 1 gm/ (Sodium Chloride) 50 mls @ 100 mls/hr IVPB Q24H [facility] Last Admin: 01/31/20 20:11 Dose: 100 mls/hr Documented by: Dextrose/Sodium Chloride (Dextrose 5%-1/2ns Iv Soln) 1,000 mls @ 125 mls/hr IV .Q8H [facility] Last Admin: 02/01/20 13:48 Dose: Not Given Documented by: Insulin Aspart (Novolog) 0 unit SQ AC-TID [facility]; Protocol Last Admin: 02/01/20 13:48 Dose: 2 unit Documented by: Melatonin (Melatonin) 3 mg PO HS [facility] Last Admin: 01/31/20 20:11 Dose: 3 mg Documented by: Miscellaneous Information (Potassium Per Protocol) 1 each MISCELLANE DAILY PRN; Protocol PRN Reason: Per Protocol Naloxone HCl (Narcan) 0.2 mg IV Q2M PRN PRN Reason: Opioid Reversal Ondansetron HCl (Zofran) 4 mg IVP Q8HR PRN PRN Reason: Nausea And Vomiting Venlafaxine HCl (Effexor Xr) 37.5 mg PO DAILY [facility] Last Admin: 02/01/20 08:24 Dose: 37.5 mg Documented by: Physical examination: VITAL SIGNS: 97.5, 52, 16, 118/56, 96% on room air GENERAL: Laying in bed, awake, very withdrawn EYES: Pupils equal. Conjunctiva pale. HEENT: External appearance of nose and ears normal, oral cavity dry. NECK: JVD not raised; masses not palpable. HEART: First and second heart sounds are normal; no edema. LUNGS: Respiratory rate normal; decreased breath sounds. ABDOMEN: Soft, nontender, liver spleen not palpable, no masses palpable. PSYCH: Hardly answering questions, withdrawn DERMATOLOGICAL: Diffuse bruising. INVESTIGATIONS, reviewed in the clinical context: Potassium 3 bicarbonate 17 bun 78 creatinine 1.85 TSH 2.2 Previous testing White count 16.1 hemoglobin 15.8 platelets 157 potassium 3.8 105 creatinine 3.26 lactic acid 3.5 total bilirubin 1.6 Troponin I 0.048 UA showing bacteria, hyaline cast mucus COVID-19 PCR-not detected Chest x-ray film personally reviewed by me-lung corona clear EKG tracing personally reviewed by me shows-sinus rhythm Pelvic head, cervical spine studies-negative for fracture Assessment: -Acute kidney injury possibly combination of prerenal and ATN from hypotension, POA-slow to respond -Acute metabolic encephalopathy multifactorial, POA-slow to respond -Hypothermia-multifactorial, POA, better -Major depression, recurrent, cannot rule out a psychosis component-slow to respond -Medical debility -Possible UTI with cystitis -Metabolic acidosis from renal failure -Lactic acidosis likely type II -No bedbugs found to the nursing. Plan: -Continue current medication treatment plan. We'll request psychiatry to reevaluate the patient in terms of changing medication as patient is not eating at all
[2020-02-01 16:40] LABS: Glucose,Whole Blood 183 mg/dL (75-99)
[2020-02-01 17:17] LABS: Magnesium 1.7 mg/dL (1.6-2.3)
[2020-02-01 17:19] LABS: Potassium 2.6 mmol/L (3.5-5.1)
[2020-02-01] MEDS: POTASSIUM CHLORIDE 10 MEQ in WATER FOR INJECTION 1 100ML.BAG IVPB SCH ×2 (17:52→21:44)
[2020-02-01 20:37] LABS: Glucose,Whole Blood 152 mg/dL (75-99)
[2020-02-02] MEDS: POTASSIUM CHLORIDE 10 MEQ in WATER FOR INJECTION 1 100ML.BAG IVPB SCH ×4 (00:33→03:53)
[2020-02-02] MEDS: MELATONIN 3 MG TABLET PO SCH ×2 (00:35→22:03)
[2020-02-02 05:49] LABS: Glucose,Whole Blood 164 mg/dL (75-99)
[2020-02-02] MEDS: DEXTROSE 5%-0.45% NACL 1,000 ML IV SCH ×2 (06:53→12:33)
[2020-02-02] MEDS: INSULIN ASPART (NovoLOG) 100 UNIT/ML VIAL SQ SCH ×3 (06:54→17:04)
[2020-02-02 07:36] LABS: Potassium 3.7 mmol/L (3.5-5.1)
[2020-02-02] MEDS ORDERED: ENOXAPARIN 30 MG/0.3 ML SYRINGE SQ SCH (09:00)
[2020-02-02] MEDS: VENLAFAXINE HCL ER 37.5 MG CAP PO SCH (09:35)
[2020-02-02 10:40] VITALS: BMI 24.7
[2020-02-02 11:33] LABS: Calcium 7.7 mg/dL (8.4-10.2)
[2020-02-02 11:46] LABS: Glucose,Whole Blood 112 mg/dL (75-99)
[2020-02-02] MEDS ORDERED: VENLAFAXINE HCL ER 37.5 MG CAP PO STA (13:07)
--- NOTE | 2020-02-02 13:15 | P.PN ---
Progress Note - Text Progress Note Date: 02/02/20 Interval History: Patient was seen for psychiatric follow-up today for delirium and depression. As per nurse taking care of patient, states that patient has been taking her medications and drinking ensure however patient has been refusing to eat claiming that she has not been hungry. No other behavioral concerns were relayed. Patient was seen at the bedside and appeared to be less lethargic than previously seen and was more interactive and cooperative with automobile and property underwriter. She claims that her mood has been mildly improving. She states that she has not heard from her family since being in the hospital. She did not offer any complaints. She states that she has not been eating as she does not feel hungry. She claims that she has been sleeping "on and off". At this time patient denies any suicidal or homical ideations, intent or plan. Patient denies any auditory, visual hallucinations and denies any paranoia or delusions. Patient denies any side effects from the medications and has been compliant with meds. Mental Status Exam: General Appearance: Patient appears to be stated age is less lethargic today, pleasant, and attempts to be cooperative. Patient appears to have improved hygiene and grooming wearing hospital gown with fair eye contact. Behavior: Patient is calmly lying in bed without any agitated behavior. Slow to respond. Speech: Patient's speech is fluent and nonpressured. Soft tone. Mood/Affect: Patient reports their mood is mildly improving, affect is congruent and constricted. Suicidality/Homicidality: Patient denies having any suicidal or homicidal ideation intent or plan. Perceptions: Patient denies any visual hallucinations and denies any auditory hallucinations Though content/process: logical and concrete. Organized. Memory and concentration: AOX2, she did not know what the date was today. She has improving memory recall. Improving attention span. Cannot spell "WORLD" backwards Judgment and insight: Limited Assessment Delirium likely secondary to toxic/metabolic etiology Major depressive disorder Plan: -At this time patient DOES NOT meet criteria for inpatient psychiatric admission. Patient's mental status has been gradually improving however patient's medical condition is slowly recovering. Patient did have a sodium of 131 and a creatinine which is elevated and continues to have chronic bedsores. -Delirium precautions recommended with patient including - avoiding use of narcotics and GREEN PLUMBER sedatives, limit anticholinergic medications when possible, frequent re-orientation, minimize use of restraints, open window shades during the day and close them at night -Would recommend the following medication changes/additions: Increased Effexor XR 75 mg daily for mood. Continue with melatonin 3 mg daily at bedtime for sleep. Started Remeron 7.5 milligrams nightly for sleep/mood/appetite. -Will continue to follow along as needed as this patient gradually improves her medical condition. It appears that patient is unable able to care for herself at home or needs higher level of care upon disposition. -Psychiatry will continuing to follow along as needed, Please contact with any questions.
[2020-02-02 16:47] LABS: Glucose,Whole Blood 171 mg/dL (75-99)
--- NOTE | 2020-02-02 18:22 | P.PN ---
Progress Note - Text Progress Note Date: 02/02/20 Chief Complaint: Found on the floor History of presenting complaint: This is a 69-year-old patient who presented to the ER. Apparently a family member called the EMS. When EMS arrived patient is on the floor. She told her she been there for a few months. She had uterine facies all over and the place was totally uncontrolled. He wonders animal feces. Patient bruising in different possible body. Tired rundown rather confused. Unable to give any much of a history. Patient apparently doesn't take any medications. I did have the nurse call patient's family doctor and the pharmacy but no medications were filled for the last 2 years at least. Patient was here in 2017 and the psychiatry unit for severe depression. At that time she had a diagnosis of diabetes hypertension hyperlipidemia. Patient has a stage I buttock decub. Patient's hardly been eating here. Patient was hypothermic on presentation. Did get a hugger. Divya answering questions. Following acute renal failure started on IV fluids. Denies any shortness of breath or cough. Patient is known to being a smoker otherwise. Per the EMS report bedbugs are noted. Admitted with-acute kidney injury injury from prerenal/ATN from hypertension, acute metabolic encephalopathy, hypothermia, severe depression metabolic acidosis. Patient started on bicarbonate, IV fluids, IV ceftriaxone-for UTI. Also started on Effexor and melatonin by psychiatry. Today-laying in bed. Still not eating. Getting IV fluids. We'll also occasional questions. Admitting review of systems cannot really be done as patient is withdrawn Active Medications Acetaminophen (Tylenol Tab) 650 mg PO Q6HR PRN PRN Reason: Mild Pain or Fever > 100.5 Enoxaparin Sodium (Lovenox) 40 mg SQ DAILY [facility] Ceftriaxone Sodium 1 gm/ (Sodium Chloride) 50 mls @ 100 mls/hr IVPB Q24H [facility] Last Admin: 02/01/20 20:56 Dose: 100 mls/hr Documented by: Dextrose/Sodium Chloride (Dextrose 5%-1/2ns Iv Soln) 1,000 mls @ 50 mls/hr IV .Q20H [facility] Last Admin: 02/02/20 12:33 Dose: 125 mls/hr Documented by: Insulin Aspart (Novolog) 0 unit SQ AC-TID [facility]; Protocol Last Admin: 05/18/20 17:04 Dose: Not Given Documented by: Melatonin (Melatonin) 3 mg PO [facility] Last Admin: 02/02/20 00:35 Dose: Not Given Documented by: Mirtazapine (Remeron) 7.5 mg PO HS [facility] Miscellaneous Information (Potassium Per Protocol) 1 each MISCELLANE DAILY PRN; Protocol PRN Reason: Per Protocol Naloxone HCl (Narcan) 0.2 mg IV Q2M PRN PRN Reason: Opioid Reversal Ondansetron HCl (Zofran) 4 mg IVP Q8HR PRN PRN Reason: Nausea And Vomiting Venlafaxine HCl (Effexor Xr) 75 mg PO DAILY [facility] Physical examination: VITAL SIGNS: 97.3, 63, 16, 106/65, 96% on room air GENERAL: Laying in bed, awake, withdrawn EYES: Pupils equal. Conjunctiva pale. HEENT: External appearance of nose and ears normal, oral cavity dry. NECK: JVD not raised; masses not palpable. HEART: First and second heart sounds are normal; no edema. LUNGS: Respiratory rate normal; decreased breath sounds. ABDOMEN: Soft, nontender, liver spleen not palpable, no masses palpable. PSYCH: May answer occasional question, withdrawn DERMATOLOGICAL: Diffuse bruising. INVESTIGATIONS, reviewed in the clinical context: Potassium 3.7 bun 51 and creatinine 1.24 Accu-Cheks 112, 171 Previous testing White count 16.1 hemoglobin 15.8 platelets 157 potassium 3.8 105 creatinine 3.26 lactic acid 3.5 total bilirubin 1.6 Troponin I 0.048 UA showing bacteria, hyaline cast mucus COVID-19 PCR-not detected Chest x-ray film personally reviewed by me-lung corona clear EKG tracing personally reviewed by me shows-sinus rhythm Pelvic head, cervical spine studies-negative for fracture TSH 2.2 Assessment: -Acute kidney injury possibly combination of prerenal and ATN from hypotension, slowly improving -Acute metabolic encephalopathy multifactorial, slow to respond -Hypothermia-multifactorial, POA, better -Major depression, recurrent,-slow to respond -Medical debility-requiring assistance. -Possible UTI with cystitis -Metabolic acidosis from renal failure -Lactic acidosis likely type II -No bedbugs-as per nursing. Plan: -Dr. Bermudez yes from psychiatry did come back increased dose of Effexor. Always to be supervised to encourage oral intake. Continue current medication treatment plan.
--- NOTE | 2020-02-02 20:32 | PN ---
PROGRESS NOTE Patient is seen for followup for acute kidney injury. She is currently awake, comfortable, not in any acute distress. Patient's mentation has improved significantly. On examination, blood pressure is 101/68, heart rate 62 per minute. Patient is afebrile. EXAMINATION OF THE HEART: S1 and S2. EXAMINATION OF LUNGS: Bilateral breath sounds are heard. Examination of lower extremities shows no evidence of edema. Labs show sodium 131, potassium 3.7, chloride 106. CO2 is 20, BUN 51, creatinine 1.24. ASSESSMENT: 1. Acute kidney injury, prerenal, currently significantly improved. Decrease IV fluids to about 50 mL/hour and continue to encourage increased oral intake. 2. Altered mentation associated with acute kidney injury as well as severe volume depletion, currently improved. 3. Metabolic acidosis associated with acute kidney injury and lactic acidosis, currently resolved. 4. Hypokalemia, status post replacement and improved. 5. Type 2 diabetes, maintained on insulin. PLAN: Decrease IV fluids. Encourage increased oral intake. MMODL / IJN: [id number] /
[2020-02-02 21:04] LABS: Glucose,Whole Blood 199 mg/dL (75-99)
[2020-02-02] MEDS: MIRTAZAPINE 15 MG TAB PO SCH (22:03)
[2020-02-03] MEDS: DEXTROSE 5%-0.45% NACL 1,000 ML IV SCH ×3 (01:09→20:28)
[2020-02-03 07:01] LABS: Glucose,Whole Blood 125 mg/dL (75-99)
[2020-02-03] MEDS: INSULIN ASPART (NovoLOG) 100 UNIT/ML VIAL SQ SCH ×3 (07:27→17:38)
[2020-02-03 07:44] LABS: Potassium 3.6 mmol/L (3.5-5.1)
[2020-02-03 07:53] LABS: Basophils % (A) 0 %; Eosinophils # (A) 0.1 k/uL (0-0.7); Eosinophils % (A) 1 %; HCT 34.7 % (34.0-46.0); HGB 11.5 gm/dL (11.4-16.0); Lymphocytes % (A) 19 %; MCH 34.1 pg (25.0-35.0); MCHC 33.2 g/dL (31.0-37.0); MCV 102.5 fL (80.0-100.0); Macrocytosis Slight; Mean Platelet Volume 10.1; Monocytes # (A) 0.3 k/uL (0-1.0); Monocytes % (A) 6 %; Neutrophils # (A) 3.7 k/uL (1.3-7.7); Neutrophils % (A) 73 %; RBC 3.39 m/uL (3.80-5.40); RDW 14.6 % (11.5-15.5); WBC 5.2 k/uL (3.8-10.6)
[2020-02-03] MEDS: ENOXAPARIN 40 MG/0.4 ML SYRINGE SQ SCH (08:20)
[2020-02-03] MEDS: VENLAFAXINE HCL ER 75 MG CAP PO SCH (08:20)
[2020-02-03 09:17] LABS: Platelet Count 60 k/uL (150-450)
[2020-02-03 11:27] LABS: Glucose,Whole Blood 134 mg/dL (75-99)
--- NOTE | 2020-02-03 15:48 | PN ---
PROGRESS NOTE Patient is seen for followup for acute kidney injury, which has currently improved significantly. Patient was maintained on IV fluids, which are now decreased. She is tolerating oral intake. On examination today, blood pressure was 128/81, heart rate 52 per minute. She is afebrile. EXAMINATION OF THE HEART: S1 and S2. EXAMINATION OF LUNGS: Bilateral breath sounds are heard. ABDOMEN: Soft, non-tender. Examination of lower extremities shows no significant edema. HAM SMOKER exam shows patient does not move her lower extremities much. Labs show sodium 135, potassium 3.6, chloride 104, BUN 40, creatinine 1.12, calcium 8.0. ASSESSMENT: 1. Acute kidney injury, mainly prerenal, currently significantly improved with creatinine down to 1.12 from 3.52 initially. IV fluids have been decreased. They can be discontinued if patient is eating well. 2. Urinary tract infection, maintained on antibiotics. Urine culture, however, did not grow any significant bacteria. 3. Volume depletion, currently resolved. 4. Altered mentation, now improved. 5. Metabolic acidosis associated with acute kidney injury on initial admission, currently improved. PLAN: Discontinue IV fluids if patient is eating well. MMODL / IJN: [id number] /
[2020-02-03 16:53] LABS: Glucose,Whole Blood 150 mg/dL (75-99)
[2020-02-03 20:02] LABS: Glucose,Whole Blood 130 mg/dL (75-99)
--- NOTE | 2020-02-03 20:17 | P.PN ---
Progress Note - Text Progress Note Date: 02/03/20 Chief Complaint: Found on the floor History of presenting complaint: This is a 69-year-old patient who presented to the ER. Apparently a family member called the EMS. When EMS arrived patient is on the floor. She told her she been there for a few months. She had uterine facies all over and the place was totally uncontrolled. He wonders animal feces. Patient bruising in different possible body. Tired rundown rather confused. Unable to give any much of a history. Patient apparently doesn't take any medications. I did have the nurse call patient's family doctor and the pharmacy but no medications were filled for the last 2 years at least. Patient was here in 2017 and the psychiatry unit for severe depression. At that time she had a diagnosis of diabetes hypertension hyperlipidemia. Patient has a stage I buttock decub. Patient's hardly been eating here. Patient was hypothermic on presentation. Did get a hugger. Divya answering questions. Following acute renal failure started on IV fluids. Denies any shortness of breath or cough. Patient is known to being a smoker otherwise. Per the EMS report bedbugs are noted. Admitted with-acute kidney injury injury from prerenal/ATN from hypertension, acute metabolic encephalopathy, hypothermia, severe depression metabolic acidosis. Patient started on bicarbonate, IV fluids, IV ceftriaxone-for UTI. Also started on Effexor and melatonin by psychiatry. Today-in bed. Awake. Still not eating. Getting IV fluids. Admitting review of systems cannot really be done as patient is withdrawn Active Medications Acetaminophen (Tylenol Tab) 650 mg PO Q6HR PRN PRN Reason: Mild Pain or Fever > 100.5 Last Admin: 02/02/20 22:14 Dose: 650 mg Documented by: Enoxaparin Sodium (Lovenox) 40 mg SQ DAILY [facility] Last Admin: 02/03/20 08:20 Dose: 40 mg Documented by: Ceftriaxone Sodium 1 gm/ (Sodium Chloride) 50 mls @ 100 mls/hr IVPB Q24H [facility] Last Admin: 02/02/20 22:03 Dose: 100 mls/hr Documented by: Dextrose/Sodium Chloride (Dextrose 5%-1/2ns Iv Soln) 1,000 mls @ 50 mls/hr IV .Q20H [facility] Last Admin: 02/03/20 17:38 Dose: 50 mls/hr Documented by: Insulin Aspart (Novolog) 0 unit SQ AC-TID [facility]; Protocol Last Admin: 02/03/20 17:38 Dose: 1 unit Documented by: Melatonin (Melatonin) 3 mg PO HS [facility] Last Admin: 02/02/20 22:03 Dose: 3 mg Documented by: Mirtazapine (Remeron) 7.5 mg PO HS [facility] Last Admin: 02/02/20 22:03 Dose: 7.5 mg Documented by: Miscellaneous Information (Potassium Per Protocol) 1 each MISCELLANE DAILY PR[facility]; Protocol PRN Reason: Per Protocol Naloxone HCl (Narcan) 0.2 mg IV Q2M PRN PRN Reason: Opioid Reversal Ondansetron HCl (Zofran) 4 mg IVP Q8HR PRN PRN Reason: Nausea And Vomiting Venlafaxine HCl (Effexor Xr) 75 mg PO DAILY [facility] Last Admin: 02/03/20 08:20 Dose: 75 mg Documented by: Physical examination: VITAL SIGNS: 97.5 58, 16, 124/70, 98% room air GENERAL: Laying in bed, awake, withdrawn EYES: Pupils equal. Conjunctiva pale. HEENT: External appearance of nose and ears normal, oral cavity dry. NECK: JVD not raised; masses not palpable. HEART: First and second heart sounds are normal; no edema. LUNGS: Respiratory rate normal; decreased breath sounds. ABDOMEN: Soft, nontender, liver spleen not palpable, no masses palpable. PSYCH: May answer occasional question, withdrawn DERMATOLOGICAL: Diffuse bruising. INVESTIGATIONS, reviewed in the clinical context: Bun 40 creatinine 1.12 white count 5.2 Previous testing White count 16.1 hemoglobin 15.8 platelets 157 potassium 3.8 105 creatinine 3.26 lactic acid 3.5 total bilirubin 1.6 Troponin I 0.048 UA showing bacteria, hyaline cast mucus COVID-19 PCR-not detected Chest x-ray film personally reviewed by me-lung corona clear EKG tracing personally reviewed by me shows-sinus rhythm Pelvic head, cervical spine studies-negative for fracture TSH 2.2 Assessment: -Acute kidney injury possibly combination of prerenal and ATN from hypotension, slowly improving -Acute metabolic encephalopathy multifactorial, -Severe anorexia-could be from severe depression-slow to respond -Hypothermia-multifactorial, POA, better -Major depression, recurrent,-slow to respond -Medical debility-requiring assistance. -Possible UTI with cystitis -Metabolic acidosis from renal failure -Lactic acidosis likely type II -No bedbugs-as per nursing. -Thrombocytopenia likely ITP Plan: Discussed with Dr. Oviedo from psychiatry. 2 current medication. Patient again encouraged to increase oral intake. Continue with IV fluids. Follow labs.
[2020-02-03] MEDS: MIRTAZAPINE 15 MG TAB PO SCH (20:25)
[2020-02-03] MEDS: MELATONIN 3 MG TABLET PO SCH (20:26)
[2020-02-04 07:04] LABS: Calcium 8.3 mg/dL (8.4-10.2); Potassium 3.8 mmol/L (3.5-5.1)
[2020-02-04] MEDS: VENLAFAXINE HCL ER 75 MG CAP PO SCH (07:05)
[2020-02-04] MEDS: ENOXAPARIN 40 MG/0.4 ML SYRINGE SQ SCH (07:05)
[2020-02-04] MEDS: INSULIN ASPART (NovoLOG) 100 UNIT/ML VIAL SQ SCH ×3 (07:11→17:41)
[2020-02-04 07:12] LABS: Glucose,Whole Blood 135 mg/dL (75-99)
[2020-02-04 11:43] LABS: Glucose,Whole Blood 120 mg/dL (75-99)
--- NOTE | 2020-02-04 16:37 | PN ---
PROGRESS NOTE Patient is seen for followup for acute kidney injury. She was admitted with a serum creatinine of around 3.26, which peaked to 3.52, serum creatinine is now down to 0.96. Patient is status post IV fluids. Mentation has improved. She is currently resting comfortably. She is being considered for possible discharge. PHYSICAL EXAMINATION: On examination today, blood pressure 133/73, heart rate 62 per minute, she is afebrile. Examination of the heart S1, S2. Examination of the lungs, bilateral breath sounds are heard. Abdomen is soft, nontender. Examination of lower extremities shows no significant edema. MAP MAKER exam shows patient does not move her lower extremities much. Otherwise, a detailed exam is not performed. LABS: Show sodium 135, potassium 3.8, chloride 104, CO2 is 26, BUN 34, creatinine 0.96. ASSESSMENT: 1. Acute kidney injury prerenal, currently significantly improved. 2. Pyuria with urine cultures negative for growth, status post antibiotics. 3. Volume depletion now improved. 4. Metabolic acidosis associated with acute kidney injury on admission currently resolved. PLAN: Patient is stable for discharge from nephrology standpoint. Continue to avoid NSAIDs post discharge. MMODL / IJN: [id number] /
[2020-02-04 16:51] LABS: Glucose,Whole Blood 138 mg/dL (75-99)
[2020-02-04 20:24] LABS: Glucose,Whole Blood 119 mg/dL (75-99)
--- NOTE | 2020-02-04 20:41 | P.PN ---
Progress Note - Text Progress Note Date: 02/04/20 Chief Complaint: Found on the floor History of presenting complaint: This is a 69-year-old patient who presented to the ER. Apparently a family member called the EMS. When EMS arrived patient is on the floor. She told her she been there for a few months. She had uterine facies all over and the place was totally uncontrolled. He wonders animal feces. Patient bruising in different possible body. Tired rundown rather confused. Unable to give any much of a history. Patient apparently doesn't take any medications. I did have the nurse call patient's family doctor and the pharmacy but no medications were filled for the last 2 years at least. Patient was here in 2017 and the psychiatry unit for severe depression. At that time she had a diagnosis of diabetes hypertension hyperlipidemia. Patient has a stage I buttock decub. Patient's hardly been eating here. Patient was hypothermic on presentation. Did get a hugger. Divya answering questions. Following acute renal failure started on IV fluids. Denies any shortness of breath or cough. Patient is known to being a smoker otherwise. Per the EMS report bedbugs are noted. Admitted with-acute kidney injury injury from prerenal/ATN from hypertension, acute metabolic encephalopathy, hypothermia, severe depression metabolic acidosis. Patient started on bicarbonate, IV fluids, IV ceftriaxone-for UTI. Also started on Effexor and melatonin by psychiatry. Today-patient has been drinking ensure. Has been getting IV fluids. Still refusing food Admitting review of systems cannot really be done as patient is withdrawn Active Medications Acetaminophen (Tylenol Tab) 650 mg PO Q6HR PRN PRN Reason: Mild Pain or Fever > 100.5 Last Admin: 02/02/20 22:14 Dose: 650 mg Documented by: Enoxaparin Sodium (Lovenox) 40 mg SQ DAILY [facility] Last Admin: 02/04/20 07:05 Dose: 40 mg Documented by: Ceftriaxone Sodium 1 gm/ (Sodium Chloride) 50 mls @ 100 mls/hr IVPB Q24H [facility] Last Admin: 02/03/20 20:26 Dose: 100 mls/hr Documented by: Insulin Aspart (Novolog) 0 unit SQ AC-TID [facility]; Protocol Last Admin: 02/04/20 17:41 Dose: 1 unit Documented by: Melatonin (Melatonin) 3 mg PO HS [facility] Last Admin: 02/03/20 20:26 Dose: 3 mg Documented by: Mirtazapine (Remeron) 7.5 mg PO HS [facility] Last Admin: 02/03/20 20:25 Dose: 7.5 mg Documented by: Miscellaneous Information (Potassium Per Protocol) 1 each MISCELLANE DAILY PRN; Protocol PRN Reason: Per Protocol Naloxone HCl (Narcan) 0.2 mg IV Q2M PRN PRN Reason: Opioid Reversal Ondansetron HCl (Zofran) 4 mg IVP Q8HR PRN PRN Reason: Nausea And Vomiting Venlafaxine HCl (Effexor Xr) 75 mg PO DAILY [facility] Last Admin: 02/04/20 07:05 Dose: 75 mg Documented by: Physical examination: VITAL SIGNS: 97.8, 58, 16, 117/69, 97% on room air GENERAL: Laying in bed, awake, withdrawn EYES: Pupils equal. Conjunctiva pale. HEENT: External appearance of nose and ears normal, oral cavity dry. NECK: JVD not raised; masses not palpable. HEART: First and second heart sounds are normal; no edema. LUNGS: Respiratory rate normal; decreased breath sounds. ABDOMEN: Soft, nontender, liver spleen not palpable, no masses palpable. PSYCH: May answer occasional question, withdrawn DERMATOLOGICAL: Diffuse bruising. INVESTIGATIONS, reviewed in the clinical context: Potassium 3.8 bun 34 creatinine 0.96 Previous testing White count 16.1 hemoglobin 15.8 platelets 157 potassium 3.8 105 creatinine 3.26 lactic acid 3.5 total bilirubin 1.6 Troponin I 0.048 UA showing bacteria, hyaline cast mucus COVID-19 PCR-not detected Chest x-ray film personally reviewed by me-lung corona clear EKG tracing personally reviewed by me shows-sinus rhythm Pelvic head, cervical spine studies-negative for fracture TSH 2.2 Urine culture negative Assessment: -Acute kidney injury possibly combination of prerenal and ATN from hypotension, improving -Acute metabolic encephalopathy multifactorial, -Severe anorexia-could be from severe slowly improving -Hypothermia-multifactorial, POA, better -Major depression, recurrent,-slow to respond -Medical debility-requiring 2 person assist -Possible UTI with cystitis -Metabolic acidosis from renal failure-improving -Lactic acidosis likely type II -No bedbugs-as per nursing. -Thrombocytopenia likely ITP Plan: We'll DC patient IV fluids. Also ordered milkshakes. Seen by physical therapy. Requiring 2 person assist. DC IV ceftriaxone. Looking at the discharge to ECF shortly
[2020-02-04] MEDS: MIRTAZAPINE 15 MG TAB PO SCH (20:45)
[2020-02-04] MEDS: MELATONIN 3 MG TABLET PO SCH (20:45)
[2020-02-05 06:55] LABS: Glucose,Whole Blood 110 mg/dL (75-99)
[2020-02-05] MEDS: INSULIN ASPART (NovoLOG) 100 UNIT/ML VIAL SQ SCH ×3 (07:19→17:26)
[2020-02-05] MEDS: DRONABINOL 2.5 MG CAP PO SCH ×2 (07:31→17:26)
[2020-02-05] MEDS: ENOXAPARIN 40 MG/0.4 ML SYRINGE SQ SCH (07:31)
[2020-02-05] MEDS: VENLAFAXINE HCL ER 75 MG CAP PO SCH (07:31)
[2020-02-05 08:48] LABS: Calcium 8.5 mg/dL (8.4-10.2); Potassium 4.2 mmol/L (3.5-5.1)
[2020-02-05 11:19] LABS: Glucose,Whole Blood 134 mg/dL (75-99)
--- NOTE | 2020-02-05 14:46 | P.PN ---
Progress Note - Text Progress Note Date: 02/05/20 Interval History: Patient was seen for psychiatric follow-up today for delirium and depression once again today. As per nurse taking care of patient, no significant behavioral concerns were relayed, patient continues to have poor appetite and not eating much of her meals however drinking some ensure. Patient appeared to be more awake today and quicker at responding and seemed to be more oriented. She she claims that her mood is doing "better" and denied any depression at this time. She states that she did speak with her daughter over the phone however did not give much detail the conversation. Patient spoke about going to a chcf today and was okay with that. She claims that she has been sleeping well at night however continues to have a poor appetite. Patient was agreeable to drink ensure with journalists and other writers's help. She did not offer any complaints. At this time patient denies any suicidal or homical ideations, intent or plan. Patient denies any auditory, visual hallucinations and denies any paranoia or delusions. Patient denies any side effects from the medications and has been compliant with meds. Mental Status Exam: General Appearance: Patient appears to be stated age is less lethargic today, pleasant, and attempts to be cooperative. Patient appears to have improved hygiene and grooming wearing hospital gown with fair eye contact. Behavior: Patient is calmly lying in bed without any agitated behavior. Improvement in response time. More awake today. Speech: Patient's speech is fluent and nonpressured. Soft tone. Mood/Affect: Patient reports their mood is mildly "better", affect is congruent and constricted. Suicidality/Homicidality: Patient denies having any suicidal or homicidal ideation intent or plan. Perceptions: Patient denies any visual hallucinations and denies any auditory hallucinations Though content/process: logical and concrete. Organized. Memory and concentration: AOX3, She has improving memory recall. Improving attention span. Judgment and insight: Limited, mildly improving Assessment Delirium likely secondary to toxic/metabolic etiology Major depressive disorder Plan: -At this time patient DOES NOT meet criteria for inpatient psychiatric admission. Patient's mental status has been gradually recovering along with improvement in her mood however her appetite remains poor and requires assistance. -Delirium precautions recommended with patient including - avoiding use of narcotics and RADIOLOGY MANAGER sedatives, limit anticholinergic medications when possible, frequent re-orientation, minimize use of restraints, open window shades during the day and close them at night -Would recommend the following medication changes/additions: Continue with Effexor XR 75 mg daily for mood. Continue with melatonin 3 mg daily at bedtime for sleep. Increased Remeron 15 mg nightly for sleep/mood/appetite. -Psychiatry will sign off at this time, Please contact with any questions. Patient will be going to chcf today.
[2020-02-05 15:26] VITALS: BP 139/83; PULSE 67; RESP 16; TEMP 98.3
--- NOTE | 2020-02-05 15:35 | P.DS ---
Providers Date of admission: 01/29/20 21:05 Expected date of discharge: 02/05/20 Attending physician: Goldy Brewer Consults: 01/30/20 06:52 Consult Physician Urgent Consulting Provider: John Dodson Consult Reason/Comments: SONYA, 50 CC of urine out overnight Do you want consulting provider notified?: Yes 01/30/20 11:54 Consult Physician Routine Consulting Provider: Finn Oviedo Consult Reason/Comments: severe depression Do you want consulting provider notified?: Yes Primary care physician: [facility] Course: Chief Complaint: Found on the floor History of presenting complaint: This is a 69-year-old patient who presented to the ER. Apparently a family member called the EMS. When EMS arrived patient is on the floor. She told her she been there for a few months. She had uterine facies all over and the place was totally uncontrolled. He wonders animal feces. Patient bruising in different possible body. Tired rundown rather confused. Unable to give any much of a history. Patient apparently doesn't take any medications. I did have the nurse call patient's family doctor and the pharmacy but no medications were filled for the last 2 years at least. Patient was here in 2017 and the psychiatry unit for severe depression. At that time she had a diagnosis of diabetes hypertension hyperlipidemia. Patient has a stage I buttock decub. Patient's hardly been eating here. Patient was hypothermic on presentation. Did get a hugger. Divya answering questions. Following acute renal failure started on IV fluids. Denies any shortness of breath or cough. Patient is known to being a smoker otherwise. Per the EMS report bedbugs are noted. Admitted with-acute kidney injury injury from prerenal/ATN from hypertension, acute metabolic encephalopathy, hypothermia, severe depression metabolic acidosis. Patient started on bicarbonate, IV fluids, IV ceftriaxone-for UTI. Also started on Effexor and melatonin by psychiatry. Remeron at night was also added Today-patient has been drinking ensure. Still not keen on eating solid food. Has been drinking ensure and shakes. Dose of Remeron was increased by psychiatrist today. Did respond conference with patient's daughter Jaki from [place] telephone #[phone] and her daughter Sia who lives in town locally. Several questions were answered. Patient being discharged to the rehab place today. Discussed with ECF liaison Queenie. Discussion and discharge planning more than 35 minutes Consultation: Dr. Cullen from nephrology Dr. Oviedo from psychiatry Physical examination: VITAL SIGNS: 98.3, 67, 16, 139/83, 96% on room air GENERAL: Laying in bed, awake, bit of a smile today. EYES: Pupils equal. Conjunctiva pale. HEENT: External appearance of nose and ears normal, oral cavity dry. NECK: JVD not raised; masses not palpable. HEART: First and second heart sounds are normal; no edema. LUNGS: Respiratory rate normal; decreased breath sounds. ABDOMEN: Soft, nontender, liver spleen not palpable, no masses palpable. PSYCH: May see occasional words. Did smile a bit. DERMATOLOGICAL: Diffuse bruising. -Improved INVESTIGATIONS, reviewed in the clinical context: Potassium 4.2 creatinine 0.88 Accu-Cheks 134 Previous testing White count 16.1 hemoglobin 15.8 platelets 157 potassium 3.8 105 creatinine 3.26 lactic acid 3.5 total bilirubin 1.6 Troponin I 0.048 UA showing bacteria, hyaline cast mucus COVID-19 PCR-not detected Chest x-ray film personally reviewed by me-lung corona clear EKG tracing personally reviewed by me shows-sinus rhythm Pelvic head, cervical spine studies-negative for fracture TSH 2.2 Urine culture negative Assessment: -Acute kidney injury possibly combination of prerenal and ATN from hypotension, POA -Acute metabolic encephalopathy multifactorial, improving -Severe anorexia-could be from severe depression-improving -Hypothermia-multifactorial, POA, better -Major depression, recurrent,-slow to respond -Medical debility-requiring 2 person assist -Possible UTI with cystitis, POA -Metabolic acidosis from renal failure-improving -Lactic acidosis likely type II -No bedbugs-as per nursing. -Thrombocytopenia likely ITP Disposition: [facility] Labs: CBC/BMP-5 days Patient Condition at Discharge: Stable Plan - Discharge Summary Discharge Rx Participant: Yes New Discharge Prescriptions: New Venlafaxine HCl ER [Effexor XR] 75 mg PO DAILY cap.er.24h Melatonin 3 mg PO HS tablet Acetaminophen Tab [Tylenol] 650 mg PO Q6HR PRN tab PRN Reason: Mild Pain Or Fever > 100.5 Mirtazapine [Remeron] 15 mg PO HS #3 tab Discharge Medication List Acetaminophen Tab [Tylenol] 650 mg PO Q6HR PRN tab 02/05/20 [Rx] Melatonin 3 mg PO HS tablet 02/05/20 [Rx] Mirtazapine [Remeron] 15 mg PO HS #3 tab 02/05/20 [Rx] Venlafaxine HCl ER [Effexor XR] 75 mg PO DAILY cap.er.24h 02/05/20 [Rx] Follow up Appointment(s)/Referral(s): dr YOCASTA [Other] - 2 Weeks Wili Carlson MD [Primary Care Provider] - As Needed
[2020-02-05 17:15] LABS: Glucose,Whole Blood 131 mg/dL (75-99)
[2020-02-05 17:51] LABS: Hemoglobin A1C 5.6 % (4.0-6.0)
[2020-02-05] MEDS ORDERED: MIRTAZAPINE 15 MG TAB PO SCH (21:00)
== END 2020-02-05 17:39 | DRG 682 ==
LOC: EC 17:22 → 3SCARD 21:05 → 4SSUR 02-03 01:30
PROVIDERS: ADMIT Hospitalist; ATTEND Hospitalist
DX: N17.0 Acute kidney failure with tubular necrosis (principal); G93.41 Metabolic encephalopathy; E87.2 Acidosis; F33.9 Major depressive disorder, recurrent, unspecified; D69.3 Immune thrombocytopenic purpura; T68.XXXA Hypothermia, initial encounter; L89.301 Pressure ulcer of unspecified buttock, stage 1; I95.9 Hypotension, unspecified; E86.0 Dehydration; E11.9 Type 2 diabetes mellitus without complications; Z79.4 Long term (current) use of insulin; Z11.59 Encounter for screening for other viral diseases; N30.90 Cystitis, unspecified without hematuria; L89.899 Pressure ulcer of other site, unspecified stage; I10 Essential (primary) hypertension; R63.0 Anorexia; E86.1 Hypovolemia; E87.6 Hypokalemia; E78.5 Hyperlipidemia, unspecified; R53.81 Other malaise; Z87.891 Personal history of nicotine dependence; Z85.41 Personal history of malignant neoplasm of cervix uteri; Z90.49 Acquired absence of other specified parts of digestive tract
CPT/HCPCS: 36415; 70450; 71045; 72125; 72170; 76770; 80048; 80053; 81001; 82140; 82550; 83036; 83605; 83690; 83735; 84132; 84134; 84443; 84484; 85025; 87086; 87635; 93005; 96361; 96374; 99291

== ENCOUNTER 2024-06-18 07:58 | Emergency (ER) | payer MEDICARE, OTHER ==
[2024-06-18 08:08] VITALS: PULSE 63
--- NOTE | 2024-06-18 08:20 | ED ---
General Adult HPI - General Chief complaint: Chest Pain Stated complaint: Chest pain Time Seen by Provider: 06/18/24 08:00 Source: patient, EMS, RN notes reviewed, old records reviewed Mode of arrival: EMS Limitations: no limitations - History of Present Illness Initial comments: This is a 73-year-old female who presents to the emergency department from the longterm. Patient was sent in because of chest pain. When I asked the patient how long she has been having chest pain she stated she has been having it for about 6 months. I asked her why she said something today she said it was a little bit worse today so she decided to mention it. Patient states it is worse for when she touches it and it is worse with deep breathing. Patient denies any cough fever chills. Patient states she has a little left-sided neck pain as well and she states has been ongoing for 6 months. Patient denies difficulty breathing shortness of breath. Patient has nausea vomiting. Patient has abdominal pain. Patient denies any back pain. Patient denies headache patient denies numbness or weakness - Related Data Previous Rx's Medication Instructions Recorded Acetaminophen Tab [Tylenol] 650 mg PO Q6HR PRN tab 02/05/20 Melatonin 3 mg PO HS tablet 02/05/20 Mirtazapine [Remeron] 15 mg PO HS #3 tab 02/05/20 Venlafaxine HCl ER [Effexor XR] 75 mg PO DAILY cap.er.24h 02/05/20 Allergies Allergy/AdvReac Type Severity Reaction Status Date / Time No Known Allergies Allergy Verified 01/29/20 19:33 Review of Systems ROS Statement: Those systems with pertinent positive or pertinent negative responses have been documented in the HPI. ROS Other: All systems not noted in ROS Statement are negative. Past Medical History Past Medical History: Cancer, Diabetes Mellitus, Hyperlipidemia, Hypertension Additional Past Medical History / Comment(s): cervical cancer. History of Any Multi-Drug Resistant Organisms: None Reported Past Surgical History: Adenoidectomy, Appendectomy, Cholecystectomy, Tonsillectomy Past Psychological History: Depression Past Alcohol Use History: None Reported Past Drug Use History: None Reported General Exam - General Exam Comments Initial Comments: GENERAL: Patient is well-developed and well-nourished. Patient is nontoxic and well- hydrated and is in no acute distress. ENT: Neck is soft and supple. No significant lymphadenopathy is noted. Oropharynx is clear. Moist mucous membranes. Neck has full range of motion without eliciting any pain. EYES: The sclera were anicteric and conjunctiva were pink and moist. Extraocular movements were intact and pupils were equal round and reactive to light. Eyel ids were unremarkable. PULMONARY: Unlabored respirations. Good breath sounds bilaterally. No audible rales rhonchi or wheezing was noted. CARDIOVASCULAR: There is a regular rate and rhythm without any murmurs gallops or rubs. Chest pain was reproducible on palpation ABDOMEN: Soft and nontender with normal bowel sounds. No palpable organomegaly was noted. There is no palpable pulsatile mass. SKIN: Skin is clear with no lesions or rashes and otherwise unremarkable. NEUROLOGIC: Patient is alert and oriented x 2 patient was unaware of the date. Cranial nerves II through XII are grossly intact. Motor and sensory are also intact. Normal speech, volume and content. Symmetrical smile. MUSCULOSKELETAL: Normal extremities with adequate strength and full range of motion. No lower extremity swelling or edema. No calf tenderness. LYMPHATICS: No significant lymphadenopathy is noted PSYCHIATRIC: Normal psychiatric evaluation. Limitations: no limitations Course Vital Signs 06/18/24 08:02 Temperature 97.0 F L Pulse Rate 63 Respiratory 18 Rate Blood Pressure 101/70 O2 Sat by Pulse 96 Oximetry Medical Decision Making - Medical Decision Making EKG is interpreted by myself but EKG shows a sinus rhythm at 61 bpm VA 162 QRS 79 QT interval 4 7 QTc 410. Patient's EKG shows no ST segment elevation Was pt. sent in by a medical professional or institution (, RIANNA, CADD MANAGER, urgent care, hospital, or longterm...) When possible be specific @ -Patient was sent in by the longterm. Did you speak to anyone other than the patient for history (EMS, parent, family, police, friend...)? What history was obtained from this source @ -No Did you review nursing and triage notes (agree or disagree)? Why? @ -I reviewed and agree with nursing and triage notes Were old charts reviewed (outside hosp., previous admission, EMS record, old EKG, old radiological studies, urgent care reports/EKG's, longterm records)? Report findings @ -No old charts were reviewed Differential Diagnosis? @ -Differential Chest Pain: Stable Angina, Unstable Angina, STEMI, NSTEMI Aortic Dissection, Pneumothorax, Musculoskeletal, Esophageal Spasm GERD, Cholecystitis, Pancreatitis, Zoster, this is not meant to be an all-inclusive list. EKG interpreted by me (3pts min.). @ -As above X-rays interpreted by me (1pt min.). @ -Chest x-ray showed no acute eval CT interpreted by me (1pt min.). @ -None done U/S interpreted by me (1pt. min.). @ -None done What testing was considered but not performed or refused? (CT, X-rays, U/S, labs)? Why? @ -None What meds were considered but not given or refused? Why? @ -None Did you discuss the management of the patient with other professionals (professionals i.e. , PA, CADD MANAGER, lab, RT, psych nurse, marriage and family social worker, chemistry faculty member, teacher, banking services officer, lead case manager)? Give summary @ -No Was smoking cessation discussed for >3mins.? @ -No Was critical care preformed (if so, how long)? @ -No Were there social determinants of health that impacted care today? How? (Homelessness, low income, unemployed, alcoholism, drug addiction, transportation, low edu. Level, literacy, decrease access to med. care, snf, rehab)? @ -No Was there de-escalation of care discussed even if they declined (Discuss DNR or withdrawal of care, Hospice)? DNR status @ -No What co-morbidities impacted this encounter? (DM, HTN, Smoking, COPD, CAD, Cancer, CVA, ARF, Chemo, Hep., AIDS, mental health diagnosis, sleep apnea, morbid obesity)? @ -None Was patient admitted / discharged? Hospital course, mention meds given and route, prescriptions, significant lab abnormalities, going to OR and other pertinent info. @ -Patient was given Toradol in the emergency department with packing and reevaluated the patient she had no pain and was sleeping I woke her up and she stated she felt considerably better would like to be [facility]. I reexamined the patient's chest wall and she no longer was tender after the Toradol. Undiagnosed new problem with uncertain prognosis? @ -No Drug Therapy requiring intensive monitoring for toxicity (Heparin, Nitro, Insulin, Cardizem)? @ -No Were any procedures done? @ -No Diagnosis/symptom? @ -Chest wall pain Acute, or Chronic, or Acute on Chronic? @ -Acute Uncomplicated (without systemic symptoms) or Complicated (systemic symptoms)? @ -Complicated Side effects of treatment? @ -No Exacerbation, Progression, or Severe Exacerbation? @ -No Poses a threat to life or bodily function? How? (Chest pain, USA, NM, pneumonia, PE, COPD, DKA, ARF, appy, cholecystitis, CVA, Diverticulitis, Homicidal, Suicidal, threat to staff... and all critical care pts) @ -No - Lab Data Result diagrams: 06/18/24 08:36 06/18/24 08:36 Lab Results 06/18/24 06/18/24 06/18/24 Range/Units 08:36 08:36 08:36 WBC 10.8 H (3.8-10.6) k/uL RBC 3.85 (3.80-5.40) m/uL Hgb 12.1 (11.4-16.0) gm/dL Hct 36.6 (34.0-46.0) % MCV 95.2 (80.0-100.0) fL MCH 31.5 (25.0-35.0) pg MCHC 33.1 (31.0-37.0) g/dL RDW 13.0 (11.5-15.5) % Plt Count 295 (150-450) k/uL MPV 8.3 Neutrophils % 71 % Lymphocytes % 19 % Monocytes % 5 % Eosinophils % 3 % Basophils % 0 % Neutrophils # 7.7 (1.3-7.7) k/uL Lymphocytes # 2.0 (1.0-4.8) k/uL Monocytes # 0.5 (0-1.0) k/uL Eosinophils # 0.3 (0-0.7) k/uL Basophils # 0.1 (0-0.2) k/uL PT 10.4 (10.0-12.5) sec INR 0.9 (<1.2) APTT 24.2 (22.0-30.0) sec D-Dimer 0.69 H (<0.60) mg/L FEU Sodium 135 L (137-145) mmol/L Potassium 4.4 (3.5-5.1) mmol/L Chloride 103 (98-107) mmol/L Carbon Dioxide 25 (22-30) mmol/L Anion Gap 7 mmol/L BUN 23 H (7-17) mg/dL Creatinine 1.11 H (0.52-1.04) mg/dL Est GFR (CKD-EPI)AfAm 58 (>60 ml/min/1.73 sqM) Est GFR (CKD-EPI)NonAf 50 (>60 ml/min/1.73 sqM) Glucose 122 H (74-99) mg/dL Calcium 9.3 (8.4-10.2) mg/dL Magnesium 1.6 (1.6-2.3) mg/dL Total Bilirubin 0.3 (0.2-1.3) mg/dL AST 28 (14-36) U/L ALT 22 (4-34) U/L Alkaline Phosphatase 85 (38-126) U/L Troponin I (0.000-0.034) ng/mL Total Protein 6.7 (6.3-8.2) g/dL Albumin 3.5 (3.5-5.0) g/dL 06/18/24 Range/Units 08:36 WBC (3.8-10.6) k/uL RBC (3.80-5.40) m/uL Hgb (11.4-16.0) gm/dL Hct (34.0-46.0) % MCV (80.0-100.0) fL MCH (25.0-35.0) pg MCHC (31.0-37.0) g/dL RDW (11.5-15.5) % Plt Count (150-450) k/uL MPV Neutrophils % % Lymphocytes % % Monocytes % % Eosinophils % % Basophils % % Neutrophils # (1.3-7.7) k/uL Lymphocytes # (1.0-4.8) k/uL Monocytes # (0-1.0) k/uL Eosinophils # (0-0.7) k/uL Basophils # (0-0.2) k/uL PT (10.0-12.5) sec INR (<1.2) APTT (22.0-30.0) sec D-Dimer (<0.60) mg/L FEU Sodium (137-145) mmol/L Potassium (3.5-5.1) mmol/L Chloride (98-107) mmol/L Carbon Dioxide (22-30) mmol/L Anion Gap mmol/L BUN (7-17) mg/dL Creatinine (0.52-1.04) mg/dL Est GFR (CKD-EPI)AfAm (>60 ml/min/1.73 sqM) Est GFR (CKD-EPI)NonAf (>60 ml/min/1.73 sqM) Glucose (74-99) mg/dL Calcium (8.4-10.2) mg/dL Magnesium (1.6-2.3) mg/dL Total Bilirubin (0.2-1.3) mg/dL AST (14-36) U/L ALT (4-34) U/L Alkaline Phosphatase (38-126) U/L Troponin I <0.012 (0.000-0.034) ng/mL Total Protein (6.3-8.2) g/dL Albumin (3.5-5.0) g/dL Disposition Clinical Impression: Chest wall pain Disposition: HOME SELF-CARE Condition: Good Instructions (If sedation given, give patient instructions): Chest Pain (ED) Additional Instructions: Patient should take Motrin 400 mg 3-4 times a day. Patient should return if there is any new symptoms or increase in the current symptoms Is patient prescribed a controlled substance at d/c from ED?: No Referrals: Finn Littlejohn DO [Primary Care Provider] - 1-2 days Time of Disposition: 09:53
[2024-06-18] MEDS: KETOROLAC 15 MG/ML 1 ML VIAL IVP STA (08:43)
[2024-06-18 08:54] LABS: Basophils # (A) 0.1 k/uL (0-0.2); Basophils % (A) 0 %; Eosinophils # (A) 0.3 k/uL (0-0.7); Eosinophils % (A) 3 %; HCT 36.6 % (34.0-46.0); HGB 12.1 gm/dL (11.4-16.0); Lymphocytes % (A) 19 %; MCH 31.5 pg (25.0-35.0); MCHC 33.1 g/dL (31.0-37.0); MCV 95.2 fL (80.0-100.0); Mean Platelet Volume 8.3; Monocytes # (A) 0.5 k/uL (0-1.0); Monocytes % (A) 5 %; Neutrophils # (A) 7.7 k/uL (1.3-7.7); Neutrophils % (A) 71 %; Platelet Count 295 k/uL (150-450); RBC 3.85 m/uL (3.80-5.40); WBC 10.8 k/uL (3.8-10.6)
--- NOTE | 2024-06-18 08:57 | XR ---
EXAMINATION TYPE: XR chest 2V DATE OF EXAM: 06/18/2024 HISTORY: Shortness of breath. COMPARISON: 01/29/2020 TECHNIQUE: Single view of the chest is submitted. FINDINGS: Demonstrated are scattered senescent parenchymal change. There is no evidence for focal infiltrate. The heart is stable. Hilar and mediastinal structures are within normal limits. Degenerative changes are seen of the dorsal spine. IMPRESSION: 1. Chronic changes without evidence for acute pulmonary disease. [facility], , 06/18/2024 8:54 AM
[2024-06-18 09:15] LABS: INR 0.9 (<1.2); Partial Thromboplastin Time 24.2 sec (22.0-30.0); Prothrombin Time 10.4 sec (10.0-12.5)
[2024-06-18 09:20] LABS: ALT 22 U/L (4-34); AST 28 U/L (14-36); African American GFR (CKD) 58 (>60 ml/min/1.73 sqM); Albumin 3.5 g/dL (3.5-5.0); Alkaline Phosphatase 85 U/L (38-126); Anion Gap 7 mmol/L; Blood Urea Nitrogen 23 mg/dL (7-17); Calcium 9.3 mg/dL (8.4-10.2); Carbon Dioxide 25 mmol/L (22-30); Chloride 103 mmol/L (98-107); Glucose 122 mg/dL (74-99); Magnesium 1.6 mg/dL (1.6-2.3); Non-African American GFR(CKD) 50 (>60 ml/min/1.73 sqM); Potassium 4.4 mmol/L (3.5-5.1); Sodium 135 mmol/L (137-145); Total Bilirubin 0.3 mg/dL (0.2-1.3); Total Protein 6.7 g/dL (6.3-8.2)
[2024-06-18 11:56] VITALS: BP 118/59; RESP 16; TEMP 97.6
== END 2024-06-18 11:26 | disposition home or self-care (01) ==
LOC: EC 07:58
CPT/HCPCS: 36415; 71046; 80053; 83735; 84484; 85025; 85379; 85610; 85730; 93005; 96374; 99285